=== PATIENT | female | born 1980 | race Two or more races ===

== ENCOUNTER 2024-05-04 09:48 | Emergency (ER) | payer OTHER, SELFPAY ==
--- NOTE | ~2024-05-04 | XR_ITS ---
EXAMINATION: XR CHEST CLINICAL INFORMATION: Cough x4 weeks COMPARISON: None available. TECHNIQUE: 2 views of the chest were obtained. FINDINGS: No significant abnormality is noted involving the heart, lungs, mediastinum, bony thorax or soft tissues. XR/XR chest 2V IMPRESSION: Unremarkable examination. Electronically signed by: Kaden Martinez MD 05/04/2024 12:58 PM EDT
[2024-05-04 09:53] VITALS: BP 154/86; PULSE 97; RESP 16; TEMP 37; O2SAT 100; BMI 32.8
[2024-05-04 10:48] LABS: IDNOW Serial# 08D9AD1C; Strep A Nucleic Acid Negative (Negative)
--- NOTE | 2024-05-04 11:01 | ED_ITS ---
HPI - URI/Sore Throat General Chief Complaint: Upper Respiratory Symptoms Stated Complaint: throat discomfort Time Seen by Provider: 05/04/24 10:22 Source: patient and digital asset coordinator (Gabonese) Mode of arrival: ambulatory Limitations: language barrier (Gabonese speaking) History of Present Illness ED Provider: REGGIE SANTOS PA-C HPI Narrative: 43 year old female with pmhx significant for asthma presents to the ED today for evaluation of cough x4 weeks. Cough is occasionally productive of white sputum, otherwise dry. 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 Believes that the dust particles irritated her respiratory tract. Reports continued cough since. Admits to remote history of asthma however this went away after having a prayer said over her while in [place]. Has not had issues since. Endorses using her daughters nebulizer 5x approximately 2 weeks ago with some improvement. No recent travel or long car rides. No known sick contacts. Denies fever, chills, myalgias, sore throat, chest pain, SOB, wheezing, dyspnea, leg swelling. No hx of CHF, afib, other cardiac hx. No hx DM. Related Data Previous Rx's ?Medication ?Instructions ?Recorded benzonatate 100 mg capsule 100 mg PO BID PRN cough #20 caps 05/04/24 doxycycline hyclate 100 mg tablet 100 mg PO BID 5 days #10 tabs 05/04/24 prednisone 20 mg tablet 40 mg (2 x 20 mg) PO DAILY 5 days 05/04/24 #10 tabs Allergies Allergy/AdvReac Type Severity Reaction Status Date / Time No Known Allergies Allergy Verified 05/04/24 09:55 Review of Systems Review of Systems: Constitutional: No fever, chills, fatigue, night sweats, weight changes ENT/Mouth: No ear pain, hearing loss, nasal congestion, sinus pain, rhinorrhea, sore throat Eyes: No eye pain, swelling, redness, vision changes, discharge Cardio: No chest pain, palpitations, KHAN, orthopnea, peripheral edema Pulm: No SOB, sputum, wheezing, dyspnea, hemoptysis, +cough GI: No nausea, vomiting, hematemesis, abdominal pain, diarrhea, constipation, hematochezia, melena : No irregular bleeding, dysuria, frequency, urgency, hesitancy, hematuria, flank pain, urinary flow changes, urinary incontinence or retention MSK: No back pain, neck pain, joint pain, myalgias Skin: No lesions, rashes Neuro: No weakness, numbness, paresthesias, LOC, dizziness, headache Psych: No anxiety/panic, depression, SI/HI, AH/VH All other systems reviewed and are negative. [facility] Past Medical History Attestation statement: The following information was validated with the patient. Source: old records reviewed and nursing notes reviewed Social History Social History Advance Directives: No Do you have a plan to hurt others: No Plan Physical Exam Vital Signs: Vital Signs: Last Vital Signs Temp 98.6 F 05/04/24 09:53 Pulse 97 05/04/24 09:53 Resp 16 05/04/24 09:53 BP 154/86 H 05/04/24 09:53 Pulse Ox 100 05/04/24 09:53 O2 Del Method Room Air 05/04/24 09:53 BMI result Body Mass Index 32.8 Patient hypertensive to 154/86, vitals otherwise WNL General: Well appearing, in no acute distress. Skin: Warm, dry, intact. No rashes or lesions. Head: Normocephalic, atraumatic. EENT: Hearing is intact b/l. Conjunctiva clear. PERRLA. Moist mucous membranes.? Neck: Supple without LAD Cardiac: Chest wall symmetric. RRR. No MRG. No JVD. Lungs: Normal respiratory effort without accessory muscle use. CTA bilaterally. No rales, rhonchi, or wheezes.? Back: No midline spinous or paraspinal tenderness. No step off deformity. Ext: Upper and lower extremities atraumatic, without tenderness, deformity, swelling or erythema. Full ROM throughout. No calf tenderness b/l. Neuro: AOx3. Normal speech. Ambulating with steady gait. Psych: Appropriate mood and affect. Responds appropriately to questions. Course Course Course Narrative: 1317 -- Patient tested negative for covid/ flu/ rsv. CXR without infiltrate or consolidation to suggest pneumonia. Will treat for bronchitis. Prednisone + zpack + tessalon perles sent to pharmacy for treatment. Patient has remained stable throughout ED visit today. Discussed worrisome signs and symptoms and when to return to the ED. All questions answered at this time. Patient is agreeable with disposition and stable for discharge. Medical Decision Making Medical Decision Making [facility] Narrative: 43 year old female with pmhx significant for asthma presents to the ED today for evaluation of cough x4 weeks. Hypertensive, vitals otherwise wnl. she is nontoxic appearing and in NAD. no respiratory distress. no tripoding or increased effort of breathing. Lungs clear, no rales/ rhonchi/ wheezes. RRR. No JVD or peripheral edema. No calf tenderness b/l. Differential diagnosis includes viral syndrome, strep throat, bronchitis, pneumonia, asthma exacerbation. Unlikely KEITH, arryhthmia. PERC 0. PE unlikely. Plan for viral serology, cxr, and re-evaluation. Differential Diagnosis Differential Diagnoses: The differential diagnosis associated with the presentation includes as above. Admission/Observation not indicated. Lab Data [facility] Lab Attestation statement: I reviewed the patient's lab results. as above. Labs: Lab Results 05/04/24 Range/Units 10:20 Influenza Type A (PCR) NEGATIVE (Negative) Influenza Type B (PCR) NEGATIVE (Negative) RSV RNA Qual (PCR) NEGATIVE (Negative) SARS-CoV-2 RNA (RT-PCR) NEGATIVE (Negative) S. pyogenes GrpA HANNA Negative (Negative) Independent Interpretation I performed an independent interpretation of an: Plain X-Ray Interpretation: Chest x-ray without infiltrate or consolidation, agree with radiologist's interpretation. Radiology Impression Discussion of test interpretation with radiology: I have reviewed the radio logist's reading. Radiologist Impression: EXAMINATION: XR CHEST CLINICAL INFORMATION: Cough x4 weeks COMPARISON: None available. TECHNIQUE: 2 views of the chest were obtained. FINDINGS: No significant abnormality is noted involving the heart, lungs, mediastinum, bony thorax or soft tissues. XR/XR chest 2V IMPRESSION: Unremarkable examination. Electronically signed by: Kaden Martinez MD 05/04/2024 12:58 PM EDT External Record Review External record reviewed: Inpatient record Chronic Conditions Patient?s care impacted by: Other (asthma) Social Determinants Patient?s care significantly limited by Social Determinants of Health including: Other Social Determinant of Health Critical Care Time Critical Care Time Critical Care Time: No Discharge Plan Discharge Clinical Impression: Bronchitis Patient Disposition: Home, Self-Care Instructions: Acute Bronchitis (ED) Additional Instructions: You tested negative for COVID, flu, RSV, strep throat. Your chest x-ray is normal. You will be treated for bronchitis which is inflammation of the airways. Prednisone as a steroid that has been sent to your pharmacy. Take this as directed over the next 4 days starting tomorrow. You were treated with this already in the ED today. Doxycycline is an antibiotic that has been sent to your pharmacy. Take this over the next 5 days as directed. Teskasia Godwines have been sent to your pharmacy for you to take as needed for cough. Please be aware that cough can last anywhere from 4-6 weeks. Follow up with your primary care provider. Return with new or worsening symptoms. In the case of an emergency call 911. Prescriptions: New prednisone 20 mg tablet 40 mg PO DAILY 5 Days Qty: 10 0RF benzonatate 100 mg capsule 100 mg PO BID PRN (Reason: cough) Qty: 20 0RF doxycycline hyclate 100 mg tablet 100 mg PO BID 5 Days Qty: 10 0RF Print Language: Gabonese
[2024-05-04 11:06] LABS: Influenza A PCR NEGATIVE (Negative); Influenza B PCR NEGATIVE (Negative); Resp Syncy Virus RNA Qual PCR NEGATIVE (Negative); SARS COV2 PCR INHOUSE NEGATIVE (Negative)
[2024-05-04 13:19] VITALS: BP 144/88; PULSE 80; RESP 16; TEMP 36.8; O2SAT 99
[2024-05-04 13:39] VITALS: BP 144/88; PULSE 80; RESP 16; TEMP 36.8; O2SAT 99
== END 2024-05-04 13:39 | disposition home or self-care (01) ==
PROVIDERS: Physician Assistant Medical; Emergency Provider Student in an Organized Health Care Education/Training Program
DX: J40 Bronchitis, not specified as acute or chronic (principal); R07.0 Pain in throat; R05.9 Cough, unspecified; Z03.818 Encounter for observation for suspected exposure to other biological agents ruled out
CPT/HCPCS: 0241U; 71046; 87651; 99283; 99284

== ENCOUNTER 2025-04-24 09:10 | Outpatient (REF) | payer MEDICAID, SELFPAY ==
--- OUTSIDE RECORDS SUMMARY | 2025-04-24 09:00 | XMS_ITS | Encounter Summary ---
Author Organization [employer] Address [address] [facility] [address] [place] [address] Care Team Providers Care Environmental Compliance Officer Name Role Phone Leonor Mckee MD Primary Care Provider [phone] Reason for Visit * Reason Comments Well woman exam Encounter Details Date Type Department Care Team (Latest Contact Info) Description 04/24/2025 9:00 AM EDT Procedure Visit [facility] MED & PEDS [address] [place], [place] [phone] Leonor Mckee MD [address] [place] [address] Cervical cancer screening (Primary Dx) Social History [...] Exam Vitals reviewed. Exam conducted with a zig zag spring machine operator present. Constitutional: Appearance: She is obese. HENT: [...] cervix documented in this encounter Care Teams Environmental Compliance Officer Relationship Specialty Start Date End Date Leonor Mckee MD [address] [place] [id number] PCP - General Family Medicine 03/29/25 documented as of this encounter
--- OUTSIDE RECORDS SUMMARY | 2025-04-25 15:09 | XMS_ITS | Encounter Summary ---
Author Organization [employer] Address [address] [place] [address] Care Team Providers Care Talent Development Coordinator Name Role Phone Leonor Mckee MD Primary Care Provider [phone] Encounter Details Date Type Department Care Team [...] on filedocumented in this encounter Care Teams Talent Development Coordinator Relationship Specialty Start Date End Date Leonor Mckee MD [address] [place] [address] PCP - General Family Medicine 03/29/25 documented as of this encounter
--- OUTSIDE RECORDS SUMMARY | 2025-04-25 15:09 | XMS_ITS | Encounter Summary ---
Author Organization [employer] Address [address] [facility] [address]t [place] [address] Care Team Providers Care Cco & President Name Role Phone Leonor Mckee MD Primary Care Provider [phone] Encounter Details Date Type Department Care Team ([facility] st Contact Info) Description 04/18/2025 Results Follow-Up [facility] [address] [place], [place] [phone] Leonor Mckee MD [address] [place], [place] [phone] Cologuard colon cancer screening Social History Tobacco [...] on filedocumented in this encounter Care Teams Cco & President Relationship Specialty Start Date End Date Leonor Mckee MD [address] [place] [address] PCP - General Family Medicine 03/29/25 documented as of this encounter
--- OUTSIDE RECORDS SUMMARY | 2025-04-25 15:09 | XMS_ITS | Encounter Summary ---
Author Organization [employer] Address [address] [place] [address] Care Team Providers Care Supervisor Kennel Name Role Phone Leonor Mckee MD Primary Care Provider [phone] Encounter Details Date Type Department Care Team ([facility] st Contact Info) Description 04/24/2025 Orders Only [facility] [address] [place], [place] [phone] Leonor Mckee MD [address] [place], [place] [phone] Social History Tobacco Use Types Packs/Day Years [...] on file documented as of this encounter Procedures Procedure Name Priority Date/Time Associated Diagnosis Comments T4, FREE Routine 04/24/2025 10:23 AM EDT documented in this encounter Results * T4, Free (04/24/2025 10:23 AM EDT) Free T4 (Free Thyroxine) 0.91 0.71 - 1.85 ng/dL [facility] 04/24/2025 10:2 3 AM EDT 04/24/2025 2:29 PM EDT us Leonor Mckee MD LAB BLOOD ORDERABLES Final Re sult [facility] [address] [place], [place] [phone] documented in this encounter Visit Diagnoses Not on filedocumented in this encounter Care Teams Supervisor Kennel Relationship Specialty Start Date End Date Leonor Mckee MD [address] [place] [phone] PCP - General Family Medicine 03/29/25 documented as of this encounter
--- OUTSIDE RECORDS SUMMARY | 2025-04-25 15:09 | XMS_ITS | Clinical Summary ---
Author Organization [facility] Address [address] [place] [address] Care Team Providers Care Peoplesoft Hr Developer Name Role Phone Amita Koroma PA-C Primary Care Provider [phone] Source Comments PLEASE NOTE, if this patient [...] daily 30 g 1 0 Active prenat.vits,eduardo ,bel-bxdp-ksoao per tabletIndicatio ns:prevent neural tube defect Take [...] HPV 10/21/2024 10/21/2021 Pap Smear 10/21/2024 10/21/2021 [id number] ( season) 2025 Imm-Influenza (#1) 2025 Cervical [...] 02/01/2024 3:00 AM EDT Amita Koroma PA-C [facility] MAMMO Final Result * THIN PREP IMAGE PAP + HPV RNA E6/E7 W/RFLX HPV 16, 18/45 (10/21/2021 1:35 PM EDT) CLINICAL INFORMATION See Note [facility] Comment:Routine exam LMP See Note [facility] Comment:[id number] PREV. PAP See Note [facility] Comment:NONE GIVEN PREV. BX [facility] SOURCE See Note [facility] Comment:Cervix STATEMENT OF ADEQUACY See Note [facility] Comment: Satisfactory for evaluation. Endocervical/transformation zone component absent. INTERPRETATION/RESU LT See Note [facility] Comment:Negative for intraep ithelial lesion or malignancy. INFECTION See Note [facility] Comment: Shift in vaginal bossman suggestive of bacterial vaginosis. COMMENT See Note [facility] Comment: This Pap test has been evaluated with computer assisted technology. WOOL SAMPLER See Note [facility] Comment: SL, CT(ASCP) CT screening location: [place] [address] [facility] HPV MRNA E6/E7 Not Detected Not Detected [facility] Comment: Methodology: Conductor Orchestra-Mediated Amplification This assay detects E6/E7 viral messenger RNA (mRNA) from 14 high-risk HPV types (16,18,31,33,35,39,45,51,52,56,58,59,66,68). The analytical performance characteristics of this assay have been determined by [employer]. The modifications have not been cleared or approved by the FDA. This assay has been validated pursuant to the CLIA regulations and is used for clinical purposes. For additional information, please refer to http://education.Efizity/faq/NMP839c5 (This link if provided for information/ educational purposes only.) [place] Cervix uteri structure / Unknown 10/21/2021 1:35 PM EDT 10/22/2021 5:34 AM EDT Narrative [facility] - 10/23/2021 6:36 PM EDT EXPLANATORY [...] AND CYTOLOGY AMBULATORY Final Result [facility] [address] [address], [facility] [address] [address] * COMPRE METAB PANEL (CMP) (09/13/2019 4:21 PM EST) GLUCOSE 91 70 - 100 mg/dL [facility] Comment:Reference range appl icable to fasting specimens only BUN 12 5 - 25 mg/dL [facility] CREAT 0.62 0.5 - 1.1 mg/dL [facility] GLOMERULAR FILTRATION RATE > 60 [facility] Comment: If patient is -Haitian, multiply result by 1.21 Chronic Kidney Disease: < 60 ml/min/1.73 square meters Kidney Failure: < 15 ml/min/1.73 square meters SODIUM 135 135 - 145 mEq/L [facility] POTASSIUM 3.9 3.5 - 5.5 mmol/L [facility] CHLORIDE 101 96 - 110 mmol/L [facility] CO2 28 21 - 32 mmol/L [facility] ANION GAP 6 3 - 11 [facility] CALCIUM 9.5 8.5 - 10.5 mg/dL [facility] TOTAL PROTEIN 7.6 6.0 - 8.0 G/dL [facility] ALBUMIN 4.0 3.2 - 5.0 G/dL [facility] BILI, TOTAL 0.6 0.0 - 1.4 mg/dL [facility] SGOT 11 10 - 42 U/L [facility] SGPT 14 10 - 60 U/L [facility] ALK PHOS 70 42 - 121 U/L [facility] Blood specimen (specimen) Blood / Unknown 09/13/2019 4:21 PM EST 09/13/2019 4:29 PM EST Narrative [facility] - 09/13/2019 6:29 PM EST [employer], a member of [facility] [address] [place] [address] Physics Technical Officer - Hyacinth Centeno MD PT ID [id number] ORD# [id number] Yakelin Newton PA-C LAB - BLOOD DRAW Final Result [facility] [address] [place] [address], from Last 3 Months or Most Recently Relevant to Health Maintenance Insurance [employer] [place] Care Teams Peoplesoft Hr Developer Relationship Specialty Start Date End Date Amita Koroma PA-C [address] [place] [address] PCP - General FAMILY MEDICINEZACHARIAH 03/20/22
--- OUTSIDE RECORDS SUMMARY | 2025-04-25 15:09 | XMS_ITS | Clinical Summary ---
Author Organization [facility] Address [address] [place] [address] Phone Care Team Providers Care Legal Project Manager Name Role Phone Physician, No Pcp Primary [...] Procedure Name Priority Date/Time Associated Diagnosis Comments [facility] SCREENING DIGITAL Routine 01/26/2024 3:38 PM EDT Encounter for screening mammogram for malignant neoplasm of breast from Last 3 Months or Most Recently Relevant to Health Maintenance Results * [facility] SCREENING DIGITAL (01/26/2024 3:38 PM EDT) Anatomical Region Laterality Modality Mammography 01/26/2024 9:48 AM EDT Narrative 01/26/2024 3:[address] [facility] Diagnostic Imaging Department [address] [place] [address] Patient: POLINA CASANOVA /Age/Sex: 1980 - 43 - F Unit#: [id number] Location/Status: SPDIMAM/REG CLI Mnemonic/Ordering Site: [facility] Ordering Physician: MATTIE ZELAYA PA-C [facility] Screening Digital - 01/26/24 - 1011 Report Status:Signed EXAM: [facility] Screening Digital EXAM DATE AND TIME: 01/26/2024 10:12 AM HISTORY: Screening. COMPARISON: 11/02/22, 10/30/21 TECHNIQUE: Bilateral digital breast tomosynthesis was performed in the CC and MLO projections. Computer aided detection with EyesBot 3D 3.1 was employed. TISSUE DENSITY: c. [...] Procedure Note Nurys Pinto MD - 05/17/2024 [facility] Diagnostic Imaging Department [address] [place] [address] Patient: POLINA CASANOVA./Age/Sex: 1980 - 43- F Unit#: [id number] Location/Status: SPDIMAM/REG CLI Mnemonic/Ordering Site: [facility] Ordering Physician: MATTIE ZELAYA PA-C [facility] Screening Digital - 01/26/24 - 1011 Report Status:Signed EXAM: [facility] Screening Digital EXAM DATE AND TIME: 01/26/2024 10:12 AM HISTORY: Screening. COMPARISON: 11/02/22, 10/30/21 TECHNIQUE: Bilateral digital breast tomosynthesis was performed in the CCand MLO projections. Computer aided detection with EyesBot 3D 3.1was employed. TISSUE DENSITY: c. The [...] Most Recently Relevant to Health Maintenance Insurance [facility] Care Teams Legal Project Manager Relationship Specialty Start Date End Date Physician, No Pcp PCP - General 08/03/24
--- OUTSIDE RECORDS SUMMARY | 2025-04-25 15:09 | XMS_ITS | Clinical Summary ---
Author Organization [facility] Address [address] [facility] 7 [place] [address] Care Team Providers Care Financial Internship Name Role Phone Leonor Mckee MD Primary Care Provider [phone] Allergies No known active allergies Medications multivitamin [...] Description 04/24/2025 9:00 AM EDT Procedure Visit [facility] [address] [place] [address] Leonor Mckee MD Cervical cancer screening (Primary Dx) 04/24/2025 Orders Only [facility] [address] [place] [address] Leonor Mckee MD 04/24/2025 Travel 04/18/2025 Results Follow-Up [facility] [address] [place] [address] Leonor Mckee MD Cologuard colon cancer screening 04/06/2025 Telephone [employer] [address] [place] [address] Leonor Mckee MD 04/04/2025 Population Health Risk Score [facility] (C3) Department [address] [phone] Provider, Population Health Generic 04/03/2025 Travel 03/29/2025 10:45 AM EDT Office Visit [facility] [address] [place] [address] Leonor Mckee MD Infertility counseling (Primary Dx); Screening for colon cancer; Class 1 obesity with serious comorbidity and body mass index (BMI) of 34.0 to 34.9 in adult, unspecified obesity type; Encounter for health-related screening; Encounter for immunization; Increased urinary frequency 03/29/2025 Travel 03/27/2025 Telephone [facility] [address] [place] [address] Leonor Mckee MD CHART PREP 03/22/2025 Patient Outreach [facility] [address] [place] [address] Rigo Luevano MD Pre-visit Planning (SDOH screening [...] Screening 1979 FIT 1979 HIV Screening 1980 04/24/2025 Sigmoidoscopy 1979 Disability Screening 1979 Alcohol/Substance Use Screening 1991 Family Planning (PISQ) 10/01/1994 HPV Vaccines (1 - 3-dose series) 10/01/1994 Hepatitis C Screening 10/01/1997 04/24/2025 Hepatitis B Vaccines (1 of 3 - 19+ 3-dose series) 10/01/1998 HPV/Cotest 10/01/2009 Cervical Cancer Screening 10/21/2024 Pap Smear 10/21/2024 10/21/2021 COVID-19 Vaccine ( - 2023-2 5 season) 2025 Mammogram 08/03/2025 08/03/2024, 08/03/2024 Influenza Vaccine (#1) 2026 Postp oned from 04/02/2025 (Patient Refused) SDOH Screening 03/22/2026 03/22/2025 FOBT 04/11/2026 04/11/2025 Tobacco Screening 04/24/2026 04/24/2025 Colorectal Cancer Screening 04/11/2028 FIT DNA/Cologuard 04/11/2028 04/11/2025 Zoster Vaccines (1 of 2) 10/01/2029 Lipid Panel 04/24/2030 04/24/2025 DTaP/Tdap/Td Vaccines (2 - T d or [...] Procedure Name Priority Date/Time Associated Diagnosis Comments URINALYSIS, COMPLETE, WITH REFLEX TO CULTURE Routine 04/24/2025 10:30 AM EDT Increased urinary frequency HEPATITIS C AB W/REFL TO HCV RNA, QN, PCR Routine 04/24/2025 10:25 AM EDT Encounter for health-related screening HIV 1/2 ANTIGEN/ANTIBODY, FOURTH GENERATION W/RFL Routine 04/24/2025 10:25 AM EDT Encounter for health-related screening T4, FREE Routine 04/24/2025 10:23 AM EDT MEASLES, MUMPS, AND RUBELLA (MMR) AB (IGG) PANEL, IMMUNE STATUS Routine 04/24/2025 10:23 AM EDT Infertility counseling TSH W/REFLEX TO FT4 Routine 04/24/2025 1 0:23 AM EDT Class 1 obesity with serious comorbidity and body mass index (BMI) of 34.0 to 34.9 in adult, unspecified obesity type VITAMIN D,25-OH,TOTAL,IA Routine 04/24/2025 10:23 AM EDT Class 1 obesity with serious comorbidity and body mass index (BMI) of 34.0 to 34.9 in adult, unspecified obesity type LIPID PANEL, STANDARD Routine 04/24/2025 10:23 AM EDT Class 1 obesity with serious comorbidity and body mass index (BMI) of 34.0 to 34.9 in adult, unspecified obesity type COMPREHENSIVE METABOLIC PANEL Routine 04/24/2025 10:23 AM EDT Class 1 obesity with serious comorbidity and body mass index (BMI) of 34.0 to 34.9 in adult, unspecified obesity type CBC WITH AUTO DIFFERENTIAL Routine 04/24/2025 10:23 AM EDT Class 1 obesity with serious comorbidity and body mass index (BMI) of 34.0 to 34.9 in adult, unspecified obesity type VARICELLA ZOSTER ANTIBODY, IGG Routine 04/24/2025 10:19 AM EDT Infertility counseling LAB COLOGUARD COLON CANCER SCREEN Routine 04/11/2025 8:50 AM EDT Screening for colon cancer PAP SMEAR Routine 10/21/2021 from Last 3 Months or Most Recently Relevant to Health Maintenance Results * Urinalysis, Complete, with Reflex to Culture (04/24/2025 10:30 AM EDT) Color Urine Yellow [facility] Appearance Urine Clear [facility] PH 5.5 5.0 - 9.0 [facility] Glucose Urine UA Negative Negative mg/dL [facility] Urine Blood Negative Negative [facility] Specific [place] - Urine 1.025 1.005 - 1.025 [facility] Urine Protein Negative Neg-Trace mg/dL [facility] Urine Ketones Negative Negative mg/dL [facility] Nitrite Urine Negative Negative [facility] Leukocyte Esterase Urine Negative Negative [facility] RBC Urine 0-2 0 - 2 /HPF [facility] Urine WBC 0-5 0 - 5 /HPF [facility] Urine Squamous Epithelial Cell 0-2 0 - 2 /HPF [facility] Urine Bacteria None Seen None Seen [facility] Hyaline Casts, Urine 0-2 0 - 2 /LPF [facility] Urine 04/24/2025 10:3 0 AM EDT 04/24/2025 2:17 PM EDT Narrative [facility] - 04/24/2025 2:30 PM EDT [id number], Clean Catch Leonor Mckee MD LAB URINE ORDERABLES Final Re sult Performing Organization Address [facility] Co de Phone Number [facility] [address] [place] [phone] * Hepatitis C Antibody with Reflex to HCV, RNA, Quantitative, Real-Time PCR (04/24/2025 10:25 AM EDT) Hepatitis C Antibody Nonreactive Nonreactive [facility] Comment:Antibodies to HCV no t detected; does not exclude early acuteHCV infection. Blood Venous blood specimen / Unknown 04/24/2025 10:25 AM EDT 04/24/2025 2:29 PM EDT Leonor Mckee MD LAB BLOOD ORDERABLES Final Re sult Performing Organization Address City/[facility] Co de Phone Number [facility] [address] [place] [address] [phone] * HIV-1/2 Antigen and Antibodies, Fourth Generation, with Reflexes (04/24/2025 10:25 AM EDT) HIV AB/AG Nonreactive Nonreactive [facility] Comment:HIV-1 p24 Ag and/or HIV-1/HIV-2 Ab not detected.A test result that is nonreactive does not exclude thepossibility of exposure to or infection with HIV-1 and/orHIV-2. Nonreactive results in this assay for individualswith prior exposure to HIV-1 and/or HIV-2 may be due toantigen and antibody levels that are below the limit ofdetection of this assay.The [employer] HIV Ag/Ab Combo assay result andsupplemental assay results should be interpreted inconjunction with the patient's clinical presentation,history and other laboratory results. If the results areinconsistent with clinical evidence, additional testing issuggested to confirm the result. Blood Venous blood specimen / Unknown 04/24/2025 10:25 AM EDT 04/24/2025 2:29 PM EDT us Leonor Mckee MD LAB BLOOD ORDERABLES Final Re sult Performing Organization Address [facility] Co de Phone Number [facility] [address] [place] [phone] [phone] * Vitamin D, 25-Hydroxy, Total, Immunoassay (04/24/2025 10:23 AM EDT) Vitamin D 25-OH Total 36.6 >30 ng/mL [facility] Comment: Health Based Reference Values*< 20 ng/mL Ozfsonvkg50-93 ng/mL Insufficient> 30 ng/mL Sufficient*Desirae DOMINGUEZ. N Engl J Med. 2007;357:266-280There is no well-established upper level of normal vitamin Dlevels. Some laboratories use 50 ng/mL as an upper limit ofnormal. However, toxicity is patient-dependent and may occurat any level. Careful correlation with the patient'spresentation is necessary and, if there is concern forvitamin D toxicity, treatment should be consideredirrespective of the serum level.Care must be taken in interpreting Vitamin D results fromdifferent laboratories and methodologies. Published datademonstrated that results from patients undergoinghemodialysis may show a negative bias when tested withvarious automated 25-OH vitamin D assays when compared toLC-MS/MS.When testing samples from patients whose predominant form ofVitamin D is Vitamin D2, such as patients receiving VitaminD2 supplementation, results that are subtherapeutic shouldbe confirmed with another method such as LC-MS/MS. Blood Venous blood specimen / Unknown 04/24/2025 10:23 AM EDT 04/24/2025 2:29 PM EDT Leonor Mckee MD LAB BLOOD ORDERABLES Final Re sult Performing Organization Address [facility] Co de Phone Number [facility] [address] [place] [phone] * (ABNORMAL) TSH W/Reflex to FT4 (04/24/2025 10:23 AM EDT) TSH reflex Free T4 5.02(H) 0.32 - 4.0 uIU/mL [facility] Blood Venous blood specimen / Unknown 04/24/2025 10:23 AM EDT 04/24/2025 2:29 PM EDT Leonor Mckee MD LAB BLOOD ORDERABLES Final Re sult Performing Organization Address [facility] Co de Phone Number [facility] [address] [place] [phone] * Measles, Mumps, and Rubella (MMR) Antibodies??(IgG) Panel, Immune Status (04/24/2025 10:23 AM EDT) Mumps Virus IgG Antibody >300.00 AU/mL [facility] Comment:AU/mL Interpretation ------- <9.00 Not consistent with immunity9.00-10.99 Equivocal>10.99 Consistent with immunityThe presence of mumps IgG antibody suggests immunizationor past or current infection with mumps virus. Rubella IgG Antibody 12.90 Index [facility] Comment:Index Interpretation ----- <0.90 Not consistent with immunity 0.90-0.99 Equivocal > or = 1.00 Consistent with immunityThe presence of rubella IgG antibody suggestsimmunization or past or current infection withrubella virus.THIS TEST WAS PERFORMED AT:[facility] [place] [phone] WISE MD Rubeola IgG (Measles) >300.00 AU/mL [facility] Comment:AU/mL Interpretation ----- <13.50 Not consistent with dudmpehq02.50-16.49 Equivocal>16.49 Consistent with immunityThe presence of measles IgG suggests immunization orpast or current infection with measles virus.For additional information, please refer tohttp://education.Erecruit/faq/SSU532(This link is being provided for informational/educational purposes only.) Blood 04/24/2025 10:2 3 AM EDT 04/24/2025 2:29 PM EDT us Leonor Mckee MD LAB BLOOD ORDERABLES Final Re sult [facility] [address] [place] [address] [phone] * (ABNORMAL) CBC auto differential (04/24/2025 10:23 AM EDT) White Blood Count 8.0 4.8 - 10.8 X10*3/uL [facility] Red Blood Count 4.43 4.20 - 5.50 X10*6/uL [facility] Hemoglobin 13.3 12.0 - 16.0 g/dl [facility] Hematocrit 40.8 37.0 - 47.0 % [facility] Mean Corpuscular Volume 92.1 80.0 - 98.0 fL [facility] Mean Corpuscular Hemoglobin 30.0 27.0 - 33.0 pg [facility] Mean Corpuscular HGB Conc 32.6 31.0 - 35.0 g/dl [facility] Red Cell Distribution Width 12.9 11.0 - 16.0 % [facility] Platelet Count 252 160 - 400 X10*3/uL [facility] Mean Platelet Volume 11.6 9.4 - 12.3 fL [facility] Neutrophils Percent Auto 62.3 45 - 73 % [facility] Imm Gran Pct Auto 0.5(H) 0.0 - 0.4 % [facility] Lymphocytes Percent Auto 26.1 20 - 40 % [facility] Monocytes Percent Auto 8.5 2 - 11 % [facility] Eosinophils Percent Auto 2.1 0 - 4 % [facility] Basophils Percent Auto 0.5 0 - 2 % [facility] NRBC Pct Auto 0.0 0.0 - 0.2 /100WBC [facility] Neutrophils Absolute Auto 5.0 2.0 - 8.3 x10*3/uL [facility] Imm Gran Abs Auto 0.04(H) 0.00 - 0.03 X10*3/uL [facility] Lymphocytes Absolute Auto 2.1 1.2 - 4.9 X10*3/uL [facility] Monocytes Absolute Auto 0.7 0.1 - 1.2 X10*3/uL [facility] Eosinophils Absolute Auto 0.2 0.0 - 0.4 X10*3/uL [facility] Basophils Absolute Auto 0.0 0.0 - 0.2 X10*3/uL [facility] NRBC Abs Auto 0.000 0.0 - 0.012 X10*3/uL [facility] Blood Venous blood specimen / Unknown 04/24/2025 10:23 AM EDT 04/24/2025 2:29 PM EDT us Leonor Mckee MD LAB BLOOD ORDERABLES Final Re sult Performing Organization Address [facility]/ZIP Co de Phone Number [facility] [address] [place] [phone] * T4, Free (04/24/2025 10:23 AM EDT) Free T4 (Free Thyroxine) 0.91 0.71 - 1.85 ng/dL [facility] 04/24/2025 10:2 3 AM EDT 04/24/2025 2:29 PM EDT us Leonor Mckee MD LAB BLOOD ORDERABLES Final Re sult Performing Organization Address [facility] de Phone Number [facility] [address] [place] [phone] * (ABNORMAL) Lipid Panel, Standard (04/24/2025 10:23 AM EDT) Triglycerides 210(H) <150 mg/dL [facility] Comment:Desirable Triglyceri de: less than 150 mg/dLBorderline High Triglyceride 150-199 mg/dLHigh Triglyceride: 200-499 mg/dLVery High Triglyceride: greater than or equal to 5OO mg/dL Cholesterol 194 <200 mg/dL [facility] Comment:Desirable Cholestero l: less than 200 mg/dLBorderline High Cholesterol: 200-239 mg/dLHigh Cholesterol: greater than 239 mg/dL LDL Cholesterol Calculated 122(H) <100 mg/dL [facility] Comment:Desirable LDL: less than 100 mg/dLNear Optimal/Above Optimal LDL: 110- 129 mg/dLBorderline High LDL: 130-159 mg/dLHigh LDL: 160-189 mg/dLVery High LDL: greater than or equal to 190 mg/dL HDL Cholesterol 30(L) >40 mg/dL [facility] Comment:Desirable HDL: great er than 40 mg/dL Note: This HDL assay may give artificially low results in patients with liver disease. Blood Venous blood specimen / Unknown 04/24/2025 10:23 AM EDT 04/24/2025 2:29 PM EDT us Leonor Mckee MD LAB BLOOD ORDERABLES Final Re sult [facility] [address] [place], [place] [phone] * (ABNORMAL) Comprehensive Metabolic Panel (04/24/2025 10:23 AM EDT) Sodium 139 135 - 145 mmol/L [facility] Potassium 3.7 3.3 - 5.1 mmol/L [facility] Chloride 107 96 - 108 mmol/L [facility] Carbon Dioxide 28 22 - 29 mmol/L [facility] Anion Gap 8(L) 12 - 20 [facility] Urea Nitrogen (BUN) 12 9 - 16 mg/dL [facility] Creatinine, Serum 0.61 0.5 - 1.4 mg/dL [facility] Estimated Glomerular Filt Rate >60 [facility] Comment:Chronic Kidney Disea se: Estimated GFR < 60 mL/min/1.71g6Zoptyx Kidney Disease: Estimated GFR < 15 mL/min/1.73m2 Glucose 89 60 - 115 mg/dL [facility] Calcium 8.9 8.4 - 10.2 mg/dL [facility] Bilirubin, Total 0.5 0.0 - 1.0 mg/dL [facility] Aspartate Amino Transferase 22 5 - 31 U/L [facility] Alanine Aminotransferase 19 0 - 31 U/L [facility] Total Protein 7.4 6.5 - 8.0 g/dL [facility] Albumin Level 4.2 3.5 - 5.0 g/dL [facility] Alkaline Phosphatase 65 39 - 117 U/L [facility] Blood Venous blood specimen / Unknown 04/24/2025 10:23 AM EDT 04/24/2025 2:29 PM EDT us Leonor Mckee MD LAB BLOOD ORDERABLES Final Re sult Performing Organization Address [facility] Co de Phone Number [facility] [address] [place] [phone] * Varicella Zoster Antibody, IgG (04/24/2025 10:19 AM EDT) Varicella IgG Antibody 3.61 S/CO [facility] Comment:Signal to Cut-off S/ CO Interpretation --------- <1.00 Negative - Antibody not detected > or = 1.00 Positive - Antibody detected A positive result indicates that the patient has antibody to VZV but does not differentiate between an active or past infection. The clinical diagnosis must be interpreted in conjunction with the clinical signs and symptoms of the patient. This assay reliably measures immunity due to previous infection but may not be sensitive enough to detect antibodies induced by vaccination. Thus, a negative result in a vaccinated individual does not necessarily indicate susceptibility to VZV infection. A more sensitive test for vaccination-induced immunity is Varicella Zoster Virus Antibody Immunity Screen, ACIF.THIS TEST WAS PERFORMED AT:[facility] [address] [phone] WISE MD Blood Venous blood specimen / Unknown 04/24/2025 10:19 AM EDT 04/24/2025 2:29 PM EDT Leonor Mckee MD LAB BLOOD ORDERABLES Final Re sult Performing Organization Address [facility] Co de Phone Number [facility] [address] [place] [phone] * Cologuard?? colon cancer screening (04/11/2025 8:50 AM EDT) Cologuard Result Negative Negative 04/17/20 8:30 PM EDT [facility] (CLIA #:[id number]) Comment: The Cologuard (TM) test was performed [...] screened with both Cologuard and colonoscopy. (Amarjit Bautista et al, N Engl J Med 2014;370(14):1286- 1297) The normal value (reference range) for this assay is negative. COLOGUARD RE-SCREENING RECOMMENDATION: Periodic colorectal cancer screening is an important part of preventive healthcare for asymptomatic individuals at average risk for colorectal cancer. Following a negative Cologuard result, the [place] [employer] and U.S. Multi-Society Task Force screening guidelines recommend a Cologuard re-screening interval of 3 years. References: [place] [employer] Guideline for Colorectal Cancer Screening: https://www.cancer.org/cancer/zmxcx-okfixe-vbddcz/wimpwdetx-qpofbvhlk-eszglgm/ac s-rec ommendations.html.; Fly DK, Malvin CORMIER, Paulina FraserK, Colorectal Cancer Screening: Recommendations for Physicians and Patients from the U.S. Multi-Society Task Force on Colorectal Cancer Screening , Am J Gastroenterology 2017; 112:1739-7112. TEST DESCRIPTION: Composite algorithmic analysis of stool [...] (Amarjit Hughes al, N Engl J Med 2014;370(14):4864-6314.) Cologuard may produce a false negative or false positive result (no colorectal cancer or precancerous polyp present at colonoscopy follow up). A negative Cologuard test result does not guarantee the absence of CRC or advanced adenoma (pre-cancer). The current Cologuard screening interval is every 3 years. ([place] [employer] and U.S. Multi-Society Task Force). Cologuard performance data in a 10,000 patient pivotal study using colonoscopy as the reference method can be accessed at the following location: www.Collisionable.sfilatino/results. Additional description of the Cologuard test process, warnings and precautions can be found at www.cologuard.com. Stool specimen (specimen) 04/11/2025 8:50 AM EDT 04/13/2025 9:11 AM EDT Leonor Mckee MD LAB MOLECULAR DIAGNOSTICS ORD ERABLES Final Result [facility] (CLIA #:[id number]) [address] [place] [address], * Pap Smear (10/21/2021) Pap Smear 1. NILM 1. NILM Comment:HPV RNA E6/E7 NEGATI VE Swab 10/21/2021 Historical Provider LAB CYTOLOGY ORDERABLES F inal Result from Last 3 Months or Most Recently Relevant to [place] [address] [facility] C3 Care Teams Financial Internship Relationship Specialty Start Date End Date Leonor Mckee MD [address] [place] [address] PCP - General Family Medicine 03/29/25
== END 2025-04-24 09:11 | disposition home or self-care (01) ==
LOC: HO.LNP 09:10
PROVIDERS: Visit Provider Family Medicine
DX: Z12.4 Encounter for screening for malignant neoplasm of cervix (principal); Z11.51 Encounter for screening for human papillomavirus (HPV)
CPT/HCPCS: 87626; 88175

== ENCOUNTER 2025-04-24 10:21 | Outpatient (REF) | payer MEDICAID, SELFPAY ==
--- OUTSIDE RECORDS SUMMARY | 2025-04-24 09:00 | XMS_ITS | Encounter Summary ---
Author Organization [employer] Address [address] [facility] [address] [place] [address] Care Team Providers Care Guide Plant Name Role Phone Leonor Mckee MD Primary Care Provider [phone] Reason for Visit * Reason Comments Well woman exam Encounter Details Date Type Department Care Team (Latest Contact Info) Description 04/24/2025 9:00 AM EDT Procedure Visit [facility] MED & PEDS [address] [place], [place] [phone] Leonor Mckee MD [address] [place] [address] Cervical cancer screening (Primary Dx) Social History Tobacco Use Types Packs/Day Years Used Date Smoking Tobacco: Never Passive Smoke Exposure: Never Smokeless Tobacco: Never Alcohol Use Standard Drinks/Week Comments Never 0 (1 standard drink = 0.6 oz pur e alcohol) Housing Stability Answer Date Recorded What is your housing situation today? I have gloria sing 03/22/[address] you li ve. Do you have problems with any of the following? None of the above 03/22/2025 Food Insecurity Answer Date Recorded Within the past 12 months, y ou worried that your food would run out before you got money to buy more: Never True 03/22/2025 Within the past 12 months,th e food you bought just didn't last and you didn't have enough money to get more: Never True Transportation Answer Date Recorded In the past 12 months, has l ack of transportation kept you from medical appts, meetings, work or from getting things needed for daily living? No 03/22/2025 Utilities Answer Date Recorded In the past 12 months, has t he electric, gas, oil or water company threatened to shut off services in your home? No 03/22/2025 Internet Access Answer Date Recorded Internet Access Q1 Yes 03/22/2025 Internet Access Q2 Not on file 03/22/2025 Comments Unknown Sex and Gender Information Value Date Recorded Sex Assigned at Female 02/21/2025 4:33 PM EDT Legal Sex Female 4:32 PM EDT Gender Identity Female 03/28/2025 4:24 PM EDT Sexual Orientation Don't know 03/28/2025 4: 24 PM EDT documented as of this encounter Last Filed Vital Signs Vital Sign Reading Time Taken Comments Blood Pressure 146/84 04/24/2025 8:50 AM EDT Pulse 78 04/24/2025 8:50 AM EDT Temperature 36.7 C (98.1 F) 04/24/2025 8:50 AM EDT Respiratory Rate 20 04/24/2025 8:50 AM EDT Oxygen Saturation 98% 04/24/2025 8:50 AM EDT Inhaled Oxygen Concentration - - Weight 83.2 kg (183 lb 6.4 oz) 04/24/2025 8:50 A M EDT Height 155 cm (5' 1.02 ) 04/24/2025 8:50 AM EDT Body Mass Index 34.63 04/24/2025 8:50 AM EDT documented in this encounter Progress Notes * Leonor Mckee MD - 04/24/2025 9:00 AM EDT Subjective Patient ID: Polina Koch is a 44 y.o. female who presents for Well woman exam. 44 y.o. female here for annual well woman preventive exam. LMP: Patient's last menstrual period was 03/09/2025 (exact date). Sexual activity: Social History Substance and Sexual Activity Sexual activity: Yes intention: BC method: Smoking hx: Tobacco Use: Low Risk (04/24/2025) Tobacco Smoking Tobacco Use: Never Smokeless Tobacco Use: Never Passive Exposure: Never Alcohol use hx: Social History Substance and Sexual Activity Alcohol use: Never OBHx: The patient has never been . IPV: Denies IPV Reviewed family hx Review of patient's family history indicates: Problem: Alzheimer's disease Relation: Mother Name: Age of Onset: (Not Specified) Problem: Hypertension Relation: Mother Name: Age of Onset: (Not Specified) Problem: Constipation Relation: Mother Name: Age of Onset: (Not Specified) Problem: Alzheimer's disease Relation: Father Name: Age of Onset: (Not Specified) Problem: Thyroid disease Relation: Sister Name: Age of Onset: (Not Specified) Health Maintenance: No results found for: HMPAP , HMMAMMO , HMCOLON Review of Systems Constitutional: Negative for appetite change, fatigue and fever. HENT: Negative for congestion, postnasal drip and rhinorrhea. Eyes: Negative for discharge and redness. Respiratory: Negative for apnea, cough, chest tightness and shortness of breath. Cardiovascular: Negative for chest pain. Gastrointestinal: Negative for abdominal pain. Endocrine: Negative for polyphagia. Genitourinary: Negative for difficulty urinating, dysuria and urgency. Musculoskeletal: Negative for arthralgias. Neurological: Negative for dizziness, light-headedness, numbness and headaches. Hematological: Negative for adenopathy. Does not bruise/bleed easily. Objective Visit Vitals BP (!) 146/84 Pulse 78 Temp 98.1 ??F (36.7 ??C) (Oral) Resp 20 Ht 5' 1.02 (1.55 m) Wt 183 lb 6.4 oz (83.2 kg) LMP 03/09/2025 (Exact Date) SpO2 98% BMI 34.63 kg/m?? Smoking Status Never BSA 1.89 m?? Physical Exam Vitals reviewed. Exam conducted with a channel executive present. Constitutional: Appearance: She is obese. HENT: Head: Normocephalic and atraumatic. Pulmonary: Effort: Pulmonary effort is normal. Chest: Chest wall: No deformity, tenderness or crepitus. Breasts: Breasts are symmetrical. Right: Normal. No inverted nipple, mass, nipple discharge, skin change or tenderness. Left: Normal. No inverted nipple, mass, nipple discharge, skin change or tenderness. Genitourinary: Urethra: No prolapse. Vagina: Normal. Cervix: Normal. Rectum: Normal. Musculoskeletal: Cervical back: Normal range of motion. Lymphadenopathy: Upper Body: Right upper body: No supraclavicular, axillary or pectoral adenopathy. Left upper body: No supraclavicular, axillary or pectoral adenopathy. Psychiatric: Mood and Affect: Mood normal. Assessment/Plan Problem List Items Addressed This Visit Cervical cancer screening - Primary 44 y.o. here for cervical cancer screening. Will continue monitoring following ASCCP guidelines. Relevant Orders Pap Smear HPV High Risk with Reflex to Subtypes documented in this encounter Miscellaneous Notes * Assessment & Plan Note - Leonor Mckee MD - 04/24/2025 9:20 AM EDT Associated Problem(s): Cervical cancer screening 44 y.o. here for cervical cancer screening. Will continue monitoring following ASCCP guidelines. documented in this encounter Plan of Treatment Scheduled Orders Name Type Priority Associated Diagnoses Orde r Schedule Pap Smear Pathology and Cytology Routine Cervical cancer screening Ordered: 04/24/2025 HPV High Risk with Reflex to Subtypes Lab Routine Cervical cancer screening Ordered: 04/24/2025 documented as of this encounter Visit Diagnoses Diagnosis Cervical cancer screening- Primary Screening for malignant neoplasm of the cervix documented in this encounter Care Teams Guide Plant Relationship Specialty Start Date End Date Leonor Mckee MD [address] [place] [id number] PCP - General Family Medicine 03/29/25 documented as of this encounter
--- OUTSIDE RECORDS SUMMARY | 2025-04-24 12:36 | XMS_ITS | Clinical Summary ---
Author Organization [facility] Address [address] [place] [address] Phone Care Team Providers Care Aquatics Specialist Name Role Phone Physician, No Pcp Primary Care Provider Unavaila ble Social History Tobacco Use Types Packs/Day Years Used Date Smoking Tobacco: Never Assessed Comments Unknown Sex and Gender Information Value Date Recorded Sex Assigned at Female 08/03/2024 9:57 AM EST Legal Sex Female 8:25 AM EST Gender Identity Female 08/03/2024 9:57 AM EST Sexual Orientation Straight 08/03/2024 9: 57 AM EST Plan of Treatment Health Maintenance Due Date Last Done Comments DTaP,Tdap,and Td Vaccines (1 - Tdap) 10/01/1998 Hepatitis B Vaccines (1 of 3 - 19+ 3-dose series) 10/01/1998 Cervical Cancer Screening: P ap Smear 10/01/2000 Colorectal Cancer Screening: Colonoscopy 07/05/2022 HIV Screening 07/05/2022 Hepatitis C Screening 07/05/2022 Social Influencers of Health Screening 07/05/2022 Depression Screening 08/02/2024 COVID-19 Vaccine ( - 2023-2 5 season) 2025 Influenza Vaccine (#1) 2025 Breast Cancer Screening 01/25/2026 01/26/20 24, 11/04/2022, 10/30/2021 RSV Immunization Adult Patients (1 - 1-dose 75+ series) 10/01/2054 HIB Vaccines Aged Out No longer eligi ble based on patient's age to complete this topic HPV Vaccines Aged Out No longer eligi ble based on patient's age to complete this topic Hepatitis A Vaccines Aged Out No long er eligible based on patient's age to complete this topic IPV Vaccines Aged Out No longer eligi ble based on patient's age to complete this topic MMR Vaccines Aged Out No longer eligi ble based on patient's age to complete this topic Meningococcal ACWY Vaccine Aged Out N o longer eligible based on patient's age to complete this topic Meningococcal B Vaccine Aged Out No l onger eligible based on patient's age to complete this topic Pneumococcal Vaccine: Pediatrics (0 to 5 Years) and At-Risk Patients (6 to 49 Years) Aged Out No longer eligible b ased on patient's age to complete this topic RSV Immunization Patients Under 20 months Aged Out No longer eligible b ased on patient's age to complete this topic Varicella Vaccines Aged Out No longer eligible based on patient's age to complete this topic Procedures Procedure Name Priority Date/Time Associated Diagnosis Comments [facility] SCREENING DIGITAL Routine 01/26/2024 3:38 PM EDT Encounter for screening mammogram for malignant neoplasm of breast from Last 3 Months or Most Recently Relevant to Health Maintenance Results * [facility] SCREENING DIGITAL (01/26/2024 3:38 PM EDT) Anatomical Region Laterality Modality Mammography 01/26/2024 9:48 AM EDT Narrative 01/26/2024 3:38 PM EDT [facility] Diagnostic Imaging Department [address] [place] [address] Patient: POLINA CASANOVA /Age/Sex: 1980 - 43 - F Unit#: [id number] Location/Status: SPDIMAM/REG CLI Mnemonic/Ordering Site: [facility] Ordering Physician: MATTIE ZELAYA PA-C [facility] Screening Digital - 01/26/24 - 1011 Report Status:Signed EXAM: [facility] Screening Digital EXAM DATE AND TIME: 01/26/2024 10:12 AM HISTORY: Screening. COMPARISON: 11/02/22, 10/30/21 TECHNIQUE: Bilateral digital breast tomosynthesis was performed in the CC and MLO projections. Computer aided detection with [employer] 3D 3.1 was employed. TISSUE DENSITY: c. The breasts are heterogeneously dense, which may obscure small masses. FINDINGS: A 9 mm focal nodular asymmetry is seen in the lateral left breast, posterior depth. CC and MLO spot compression tomosynthesis views and full lateral tomosynthesis views are recommended for further assessment. Circumscribed subcentimeter nodules scattered elsewhere in both breasts are without significant change, consistent with a benign process. No suspicious grouped microcalcifications or areas of architectural distortion are seen. The skin and vascularity are unremarkable. IMPRESSION: 1. Left breast focal asymmetry, for which additional views are recommended. The patient will be called back. 2. Stable mammographic appearance of the right breast. No evidence of malignancy is seen. BI-RADS: Category 0: Incomplete - Need Additional Imaging Evaluation RECOMMENDATION(S): 1: Special mammographic view(s) needed LEFT Dictating Physician: NURYS PINTO MD Electronically Signed by: NURYS PINTO MD Dic Date/Time: 01/26/24 1536 Sign date/Time: 01/26/24 1538 Procedure Note Nurys Pinto MD - 05/17/2024 [facility] Diagnostic Imaging Department [address] [place] [address] Patient: POLINA CASANOVA./Age/Sex: 1980 - 43- F Unit#: [id number] Location/Status: SPDIMAM/REG CLI Mnemonic/Ordering Site: [facility] Ordering Physician: MATTIE ZELAYA PA-C [facility] Screening Digital - 01/26/24 - 1011 Report Status:Signed EXAM: [facility] Screening Digital EXAM DATE AND TIME: 01/26/2024 10:12 AM HISTORY: Screening. COMPARISON: 11/02/22, 10/30/21 TECHNIQUE: Bilateral digital breast tomosynthesis was performed in the CCand MLO projections. Computer aided detection with [employer] 3D 3.1was employed. TISSUE DENSITY: c. The breasts are heterogeneously dense, which mayobscure small masses. FINDINGS: A 9 mm focal nodular asymmetry is seen in the lateral left breast,posterior depth. CC and MLO spot compression tomosynthesis views and full lateral tomosynthesis views are recommended for further assessment. Circumscribed subcentimeter nodules scattered elsewhere in both breastsare without significant change, consistent with a benign process. Nosuspicious grouped microcalcifications or areas of architectural distortion are seen.The skin and vascularity are unremarkable. IMPRESSION: 1. Left breast focal asymmetry, for which additional views arerecommended. The patient will be called back. 2. Stable mammographic appearance of the right breast. No evidence of malignancy is seen. BI-RADS: Category 0: Incomplete - Need Additional Imaging Evaluation RECOMMENDATION(S): 1: Special mammographic view(s) needed LEFT Dictating Physician: NURYS PINTO MD Electronically Signed by: NURYS PINTO MD Dic Date/Time: 01/26/241535 Sign date/Time: 01/26/241537 Mattie SONI IMG BI PROCEDURES Final Result from Last 3 Months or Most Recently Relevant to Health Maintenance Insurance [facility] Care Teams Aquatics Specialist Relationship Specialty Start Date End Date Physician, No Pcp PCP - General 08/03/24
--- OUTSIDE RECORDS SUMMARY | 2025-04-24 12:36 | XMS_ITS | Encounter Summary ---
Author Organization [employer] Address [address] [facility] [address] [place] [address] Care Team Providers Care Manager Planning Name Role Phone Leonor Mckee MD Primary Care Provider [phone] Encounter Details Date Type Department Care Team ([facility] st Contact Info) Description 04/18/2025 Results Follow-Up [facility] CHC MED & PEDS [address] [place], [place] [phone] Leonor Mckee MD [address] [place], [place] [phone] Cologuard colon cancer screening Social History Tobacco Use Types Packs/Day Years Used Date Smoking Tobacco: Never Passive Smoke Exposure: Never Smokeless Tobacco: Never Alcohol Use Standard Drinks/Week Comments Never 0 (1 standard drink = 0.6 oz pur e alcohol) Housing Stability Answer Date Recorded What is your housing situation today? I have gloria parker 03/22/[address] you li [...] PM EDT documented as of this encounter Plan of Treatment Not on file documented as of this encounter Visit Diagnoses Not on filedocumented in this encounter Care Teams Manager Planning Relationship Specialty Start Date End Date Leonor Mckee MD [address] [place] [id number] PCP - General Family Medicine 03/29/25 documented as of this encounter
--- OUTSIDE RECORDS SUMMARY | 2025-04-24 12:36 | XMS_ITS | Clinical Summary ---
Author Organization [employer] [facility] Address [address] [facility] 7 [place] [address] Care Team Providers Care Trail Construction Worker Name Role Phone Leonor Mckee MD Primary Care Provider [phone] Allergies No known active allergies Medications multivitamin () 27-0.8 MG tablet Take 1 tablet by mouth Once per day. 120 tablet 3 03/29/2025 Active Active Problems Problem Noted Date Diagnosed Date Cervical cancer screening 04/24/2025 Assessment & Plan (04/24/2025 9:20 AM EDT): 44 y.o. here for cervical cancer screening. Will continue monitoring following ASCCP guidelines. Infertility counseling 03/29/2025 Increased urinary frequency 03/29/2025 Encounters Date Type Department Care Team Description 04/24/2025 9:00 AM EDT Procedure Visit [facility] [address] [place] [address] Leonor Mckee MD Cervical cancer screening (Primary Dx) 04/24/2025 Travel 04/18/2025 Results Follow-Up [facility] [address] [place] [address] Leonor Mckee MD Cologuard colon cancer screening 04/06/2025 Telephone [facility] [employer] [address] [place] [address] Leonor Mckee MD 04/04/2025 Population Health Risk Score [facility] (C3) Department [address] [id number] Provider, Population Health Generic 04/03/2025 Travel 03/29/2025 10:45 AM EDT Office Visit [facility] [address] [place] [address] Leonor Mckee MD Infertility counseling (Primary Dx); Screening for colon cancer; Class 1 obesity with serious comorbidity and body mass index (BMI) of 34.0 to 34.9 in adult, unspecified obesity type; Encounter for health-related screening; Encounter for immunization; Increased urinary frequency 03/29/2025 Travel 03/27/2025 Telephone [facility] [address] [place] [address] Leonor Mckee MD CHART PREP 03/22/2025 Patient Outreach [facility] [address] [place], [place] [phone] Rigo Luevano MD Pre-visit Planning (SDOH screening negative and Tobacco screening negative) from Last 3 Months Immunizations Immunization Administration Dates Next Due Tdap 03/29/2025 Family History Medical History Relation Name Comments Alzheimer's disease Father Alzheimer's disease Mother Constipation Mother Hypertension Mother Thyroid disease Sister Relation Name Status Comments Father Mother Sister Social History Tobacco Use Types Packs/Day Years Used Date Smoking Tobacco: Never Passive Smoke Exposure: Never Smokeless Tobacco: Never Tobacco Cessation:Counseling Given: Not Answered Alcohol Use Standard Drinks/Week Comments Never 0 (1 standard drink = 0.6 oz pur e alcohol) Housing Stability Answer Date Recorded What is your housing situation today? I have gloria keith 03/22/[address] you li [...] Don't know 03/28/2025 4: 24 PM EDT Last Filed Vital Signs Vital Sign Reading [...] Mass Index 34.63 04/24/2025 8:50 AM EDT Plan of Treatment Health Maintenance Due Date Last Done Comments CT Colonography 1979 Colonoscopy 1979 Depression Screening 1979 FIT 1979 HIV Screening 1979 Lipid Panel 1979 Sigmoidoscopy 1979 Disability Screening 1979 Alcohol/Substance Use Screening 1991 Family Planning (PISQ) 10/01/1994 HPV Vaccines (1 - 3-dose series) 10/01/1994 Hepatitis C Screening 10/01/1997 Hepatitis B Vaccines (1 of 3 - 19+ 3-dose series) 10/01/1998 HPV/Cotest 10/01/2009 Cervical Cancer Screening 10/21/2024 Pap Smear 10/21/2024 10/21/2021 COVID-19 Vaccine (1 - 2023-2 5 season) 2025 Mammogram 08/03/2025 08/03/2024, 08/03/2024 Influenza Vaccine (#1) 2026 Postp oned from 04/02/2025 (Patient Refused) SDOH Screening 03/22/2026 03/22/2025 FOBT 04/11/2026 04/11/2025 Tobacco Screening 04/24/2026 04/24/2025 Colorectal Cancer Screening 04/11/2028 FIT DNA/Cologuard 04/11/2028 04/11/2025 Zoster Vaccines (1 of 2) 10/01/2029 DTaP/Tdap/Td Vaccines (2 - T d or Tdap) 03/29/2035 03/29/2025 RSV Patients and Patients Aged 60 years or older (1 - 1-dose 75+ series) 10/01/2054 HIB [...] patient's age to complete this topic Meningococcal Vaccine Aged Out No nino helen eligible based on patient's age to complete this topic Pneumococcal Vaccine: Pediatrics (0 to 5 Years) and At-Risk Patients (6 to 49) Years Aged Out No longer eligible b ased on patient's age to complete this topic RSV under 20 months Aged Out No longe r eligible based on patient's age to complete this topic Rotavirus Vaccines Aged Out No longer eligible based on patient's age to complete this topic Procedures Procedure Name Priority Date/Time Associated Diagnosis Comments LAB COLOGUARD COLON CANCER SCREEN Routine 04/11/2025 8:50 AM EDT Screening for colon cancer PAP SMEAR Routine 10/21/2021 from Last 3 Months or Most Recently Relevant to Health Maintenance Results * Cologuard?? colon cancer screening (04/11/2025 8:50 AM EDT) Cologuard Result Negative Negative 04/17/20 8:30 PM EDT [facility] (CLIA #:[id number]) Comment: The Cologuard (TM) test was performed on this specimen. NEGATIVE TEST RESULT. A negative Cologuard result indicates a low likelihood that a colorectal cancer (CRC) or advanced adenoma (adenomatous polyps with more advanced pre-malignant features) is present. The chance that a person with a negative Cologuard test has a colorectal cancer is less than 1 in 1500 (negative predictive value >99.9%) or has an advanced adenoma is less than 5.3% (negative predictive value 94.7%). These data are based on a prospective cross-sectional study of 10,000 individuals at average risk for colorectal cancer who were screened with both Cologuard and colonoscopy. (Amarjit Hughes al, N Engl J Med 2014;370(14):1286- 1297) The normal value (reference range) for this assay is negative. COLOGUARD RE-SCREENING RECOMMENDATION: Periodic colorectal cancer screening is an important part of preventive healthcare for asymptomatic individuals at average risk for colorectal cancer. Following a negative Cologuard result, the [place] [employer] Society and U.S. Multi-Society Task Force screening guidelines recommend a Cologuard re-screening interval of 3 years. References: [place] [employer] Guideline for Colorectal Cancer Screening: https://www.cancer.org/cancer/aluxp-linbbc-fmatuh/orqmqitdx-frxypycgc-rydtcmh/ac s-rec ommendations.html.; Fly DK, Malvin CR, Paulina FraserK, Colorectal Cancer Screening: Recommendations for Physicians and Patients from the U.S. Multi-Society Task Force on Colorectal Cancer Screening , Am J Gastroenterology 2017; 112:6510-0899. TEST DESCRIPTION: Composite algorithmic analysis of stool DNA-biomarkers with hemoglobin immunoassay. Quantitative values of individual biomarkers are not reportable and are not associated with individual biomarker result reference ranges. Cologuard is intended for colorectal cancer screening of adults of either sex, 45 years or older, who are at average-risk for colorectal cancer (CRC). Cologuard has been approved for use by the U.S. FDA. The performance of Cologuard was established in a cross sectional study of average-risk adults aged 50-84. Cologuard performance in patients ages 45 to 49 years was estimated by sub-group analysis of near-age groups. Colonoscopies performed for a positive result may find as the most clinically significant lesion: colorectal cancer [4.0%], advanced adenoma (including sessile serrated polyps greater than or equal to 1cm diameter) [20%] or non- advanced adenoma [31%]; or no colorectal neoplasia [45%]. These estimates are derived from a prospective cross-sectional screening study of 10,000 individuals at average risk for colorectal cancer who were screened with both Cologuard and colonoscopy. (Amarjit Hughes al, N Engl J Med 2014;370(14):5473-8441.) Cologuard may produce a false negative or false positive result (no colorectal cancer or precancerous polyp present at colonoscopy follow up). A negative Cologuard test result does not guarantee the absence of CRC or advanced adenoma (pre-cancer). The current Cologuard screening interval is every 3 years. ([place] [employer] Society and U.S. Multi-Society Task Force). Cologuard performance data in a 10,000 patient pivotal study using colonoscopy as the reference method can be accessed at the following location: www.[employer]/results. Additional description of the Cologuard test process, warnings and precautions can be found at www.[employer]eth[employer]SOAK (Smart Operational Agricultural toolKit)rd.Anita Margarita. Stool specimen (specimen) 04/11/2025 8:50 AM EDT 04/13/2025 9:11 AM EDT Leonor Mckee MD LAB MOLECULAR DIAGNOSTICS ORD ERABLES Final Result [facility] (CLIA #:[id number]) [address] [place] [address], * Pap Smear (10/21/2021) Pap Smear 1. NILM 1. NILM Comment:HPV RNA E6/E7 NEGATI VE Swab 10/21/2021 Historical Provider LAB CYTOLOGY ORDERABLES F inal Result from Last 3 Months or Most Recently Relevant to Health Maintenance Insurance [place] [address] [address] Care Teams Trail Construction Worker Relationship Specialty Start Date End Date Leonor Mckee MD [address] [place] [address] PCP - General Family Medicine 03/29/25
--- OUTSIDE RECORDS SUMMARY | 2025-04-24 12:36 | XMS_ITS | Clinical Summary ---
Author Organization [facility] Address [address] [place] [address] Care Team Providers Care Administrative Assistant Coordinator Name Role Phone Amita Koroma PA-C Primary Care Provider [phone] Source Comments PLEASE NOTE, if this patient is a minor, it may be UNLAWFUL to discuss sensitive information that is contained in these records (such as FAMILY PLANNING, MENTAL HEALTH or SUBSTANCE ABUSE) with the minor patient's parent or other person without the patient's specific authorization.[facility] Allergies No known active allergies Medications cetirizine (ZYRTEC) 10 mg tabletIndicatio ns:Itchy skin Take 1 Tab by mouth once daily 30 Tab 1 0 Active ketoconazole (NIZORAL) 2 % creamIndication s:Tinea cruris Apply topically once daily 30 g 1 0 Active prenat.vits,eduardo ,rhg-suyj-tvxah per tabletIndicatio ns:prevent neural tube defect Take 1 Tablet by mouth once daily Indications: prevention of neural tube defect when 90 Tablet 1 1 Active metroNIDAZOLE (FLAGYL) 500 mg tabletIndicatio ns:BV (bacterial vaginosis) Take 1 Tablet by mouth 2 (two) times daily Avoid alcohol consumption during treatment and 48 hours post treatment. 14 Tablet 2 Active Active Problems Problem Noted Date Diagnosed Date Routine lab draw 09/13/2019 Social History Tobacco Use Types Packs/Day Years Used Date Smoking Tobacco: Never Smokeless Tobacco: Never Alcohol Use Standard Drinks/Week Comments Never 0 (1 standard drink = 0.6 oz pur e alcohol) Social Connections Answer Date Recorded Connectedness 0 04/14/2024 Financial Resource Strain Answer Date R ecorded Financial Resource Strain 0 2019 Stress Answer Date Recorded Stress 0 09/13/2019 Physical Activity Answer Date Recorded Physical Activity 0 09/13/2019 Food Insecurity Answer Date Recorded Food 0 04/27/2024 Transportation Needs Answer Date Record ed Transportation 0 09/13/2019 Housing Stability Answer Date Recorded Housing 0 09/13/2019 Safety and Environment Answer Date Fredy rded Safety 0 09/13/2019 Utilities Answer Date Recorded Utilities 0 09/13/2019 Employment Answer Date Recorded Stress 0 04/14/2024 Comments No Sex and Gender Information Value Date Recorded Sex Assigned at Female 10/09/2019 12:12 AM PDT Legal Sex Female 9:16 AM PST Gender Identity Female 10/09/2019 12:12 AM PDT Sexual Orientation Straight 10/09/2019 12 :12 AM PDT Last Filed Vital Signs Vital Sign Reading Time Taken Comments Blood Pressure 150/32 10/21/2021 1:29 PM EDT Pulse 78 10/21/2021 1:29 PM EDT Temperature 37 C (98.6 F) 10/21/2021 1:29 PM EDT Respiratory Rate 20 10/21/2021 1:29 PM EDT Oxygen Saturation 98% 05/22/2021 4:05 PM EDT Inhaled Oxygen Concentration - - Weight 78 kg (172 lb) 10/21/2021 1:29 PM EDT Height 155 cm (5' 1.02 ) 10/21/2021 1:29 PM EDT Body Mass Index 32.47 10/21/2021 1:29 PM EDT Plan of Treatment Health Maintenance Due Date Last Done Comments Anxiety Screening 1979 HPV Screening 1979 Hepatitis C Screening 1979 Lipid Screening 1979 Tobacco Screening 1979 HIV Screening 10/01/1994 Relationship Safety Screening/Counseling 10/01/1994 Imm-DTaP/Tdap/Td (1 - Tdap) 10/01/1998 Imm-Hepatitis B (1 of 3 - 19 + 3-dose series) 10/01/1998 Imm-HPV (1 - 3-dose SCDM series) 10/01/2006 Diabetes Screening 09/13/2022 09/13/2019 Annual Wellness (Adult): Indicated (All Coverage) 10/21/2022 10/21/2021 Hypertension Screening (#1) 10/21/2022 Alcohol and Drug Screen 08/02/2024 Depression Annual Screen 08/02/2024 Breast Cancer Screening (Mammogram) 08/03/2024 02/01/2024, 01/26/2024, 11/02/2022, Additional history exists CT Colonography 10/01/2024 Colonoscopy 10/01/2024 Colorectal Cancer Screening 10/01/2024 FIT/gFOBT 10/01/2024 Fecal DNA 10/01/2024 Flexible Sigmoidoscopy 10/01/2024 Cervical Cancer Screening 10/21/2024 Pap + HPV 10/21/2024 10/21/2021 Pap Smear 10/21/2024 10/21/2021 [id number] ( season) 2025 Imm-Influenza (#1) 2025 Cervical Ablation/Cold-Knife Conization Discontinued Cervical Cryotherapy Discontinued Colposcopy Discontinued Endometrial Biopsy Discontinued Excision/Leep Discontinued HPV Genotyping Discontinued Vaginal Pap Discontinued Vulvoscopy Discontinued Procedures Procedure Name Priority Date/Time Associated Diagnosis Comments HISTORIC MAMMOGRAM 02/01/2024 3: 00 AM EDT THIN PREP IMAGE PAP + HPV RNA E6/E7 W/RFLX HPV 16, 18/45 Routine 10/21/2021 1:35 PM EDT Papanicolaou smear, as part of routine gynecological examination Papanicolaou smear for cervical cancer screening COMPREHENSIVE METABOLIC PANEL Routine 09/13/2019 4:21 PM EST Missed menses from Last 3 Months or Most Recently Relevant to Health Maintenance Results * HISTORIC MAMMOGRAM (02/01/2024 3:00 AM EDT) 02/01/2024 3:00 AM EDT Amita Koroma PA-C [facility] MAMMO Final Result * THIN PREP IMAGE PAP + HPV RNA E6/E7 W/RFLX HPV 16, 18/45 (10/21/2021 1:35 PM EDT) CLINICAL INFORMATION See Note [employer] [facility] Comment:Routine exam LMP See Note [employer] [facility] Comment:[id number] PREV. PAP See Note [employer] [facility] Comment:NONE GIVEN PREV. BX [facility] SOURCE See Note [facility] Comment:Cervix STATEMENT OF ADEQUACY See Note [facility] Comment: Satisfactory for evaluation. Endocervical/transformation zone component absent. INTERPRETATION/RESU LT See Note [employer] Comment:Negative for intraep ithelial lesion or malignancy. INFECTION See Note [employer] Comment: Shift in vaginal bossman suggestive of bacterial vaginosis. COMMENT See Note [facility] Comment: This Pap test has been evaluated with computer assisted technology. BILINGUAL LOAN PROCESSOR See Note [facility] Comment: SL, CT(ASCP) CT screening location: [place] [address] COMMENT [employer] HPV MRNA E6/E7 Not Detected Not Detected [facility] Comment: Methodology: Extruder Operator Helper-Mediated Amplification This assay detects E6/E7 viral messenger RNA (mRNA) from 14 high-risk HPV types (16,18,31,33,35,39,45,51,52,56,58,59,66,68). The analytical performance characteristics of this assay have been determined by [employer]. The modifications have not been cleared or approved by the FDA. This assay has been validated pursuant to the CLIA regulations and is used for clinical purposes. For additional information, please refer to http://education.Techlicious/faq/YAB420h4 (This link if provided for information/ educational purposes only.) [place] Cervix uteri structure / Unknown 10/21/2021 1:35 PM EDT 10/22/2021 5:34 AM EDT Narrative [facility] - 10/23/2021 6:36 PM EDT EXPLANATORY NOTE: The Pap is a screening test for cervical cancer. It is not a diagnostic test and is subject to false negative and false positive results. It is most reliable when a satisfactory sample, regularly obtained, is submitted with relevant clinical findings and history, and when the Pap result is evaluated along with historic and current clinical information. us Amita Koroma PA-C LAB - PATHOLOGY AND CYTOLOGY AMBULATORY Final Result [facility] [address] [address], [facility] [address] [address] * COMPRE METAB PANEL (CMP) (09/13/2019 4:21 PM EST) GLUCOSE 91 70 - 100 mg/dL [facility] Comment:Reference range appl icable to fasting specimens only BUN 12 5 - 25 mg/dL [facility] CREAT 0.62 0.5 - 1.1 mg/dL [facility] GLOMERULAR FILTRATION RATE > 60 [facility] Comment: If patient is -Pakistani, multiply result by 1.21 Chronic Kidney Disease: < 60 ml/min/1.73 square meters Kidney Failure: < 15 ml/min/1.73 square meters SODIUM 135 135 - 145 mEq/L [facility] POTASSIUM 3.9 3.5 - 5.5 mmol/L [facility] CHLORIDE 101 96 - 110 mmol/L [facility] CO2 28 21 - 32 mmol/L [facility] ANION GAP 6 3 - 11 [facility] CALCIUM 9.5 8.5 - 10.5 mg/dL [facility] TOTAL PROTEIN 7.6 6.0 - 8.0 G/dL [facility] ALBUMIN 4.0 3.2 - 5.0 G/dL [facility] BILI, TOTAL 0.6 0.0 - 1.4 mg/dL [facility] SGOT 11 10 - 42 U/L [facility] SGPT 14 10 - 60 U/L [facility] ALK PHOS 70 42 - 121 U/L [facility] Blood specimen (specimen) Blood / Unknown 09/13/2019 4:21 PM EST 09/13/2019 4:29 PM EST Narrative [facility] - 09/13/2019 6:29 PM EST [employer], a member of [facility] [address] [place] [address] Farrowing Worker - Hyacinth Centeno MD PT ID [id number] ORD# [id number] Yakelin Newton PA-C LAB - BLOOD DRAW Final Result [facility] [address] [place] [address], from Last 3 Months or Most Recently Relevant to Health Maintenance Insurance [employer] [place] [phone] Care Teams Administrative Assistant Coordinator Relationship Specialty Start Date End Date Amita Koroma PA-C [address] [place] [address] PCP - General FAMILY MEDICINEZACHARIAH 03/20/22
--- OUTSIDE RECORDS SUMMARY | 2025-04-24 12:36 | XMS_ITS | Encounter Summary ---
Author Organization [employer] Address [address] [place] [address] Care Team Providers Care Business Administrator Name Role Phone Leonor Mckee MD Primary Care Provider [phone] Encounter Details Date Type Department Care Team (Latest Contact Info) Description 04/24/2025 Travel Social History Tobacco Use Types Packs/Day Years [...] on filedocumented in this encounter Care Teams Business Administrator Relationship Specialty Start Date End Date Leonor Mckee MD [address] [place] [address] PCP - General Family Medicine 03/29/25 documented as of this encounter
[2025-04-24 14:26] LABS: Appearance Urine Clear; Glucose Urine UA Negative (Negative); PH 5.5 (5.0-9.0); Specific Gravity - Urine 1.025 (1.005-1.025)
[2025-04-24 14:34] LABS: MANUAL DIFF FLAG NO
[2025-04-24 14:38] LABS: Hematocrit 40.8 % (37.0-47.0); Hemoglobin 13.3 g/dl (12.0-16.0); Imm Gran Abs Auto 0.04 X10*3/uL (0.00-0.03); Imm Gran Pct Auto 0.5 % (0.0-0.4); Lymphocytes Absolute Auto 2.1 X10*3/uL (1.2-4.9); Mean Corpuscular HGB Conc 32.6 g/dl (31.0-35.0); Mean Corpuscular Hemoglobin 30.0 pg (27.0-33.0); Mean Corpuscular Volume 92.1 fL (80.0-98.0); NRBC Abs Auto 0.000 X10*3/uL (0.0-0.012); NRBC Pct Auto 0.0 /100WBC (0.0-0.2); Platelet Count 252 X10*3/uL (160-400); Red Blood Count 4.43 X10*6/uL (4.20-5.50); White Blood Count 8.0 X10*3/uL (4.8-10.8)
[2025-04-24 14:58] LABS: Alanine Aminotransferase 19 U/L (0-31); Albumin Level 4.2 g/dL (3.5-5.0); Alkaline Phosphatase 65 U/L (39-117); Anion Gap 8 (12-20); Aspartate Amino Transferase 22 U/L (5-31); Blood Urea Nitrogen 12 mg/dL (9-16); Calcium 8.9 mg/dL (8.4-10.2); Carbon Dioxide 28 mmol/L (22-29); Chloride 107 mmol/L (96-108); Cholesterol 194 mg/dL (<200); Estimated Glomerular Filt Rate > 60; HDL Cholesterol 30 mg/dL (>40); Potassium 3.7 mmol/L (3.3-5.1); Sodium 139 mmol/L (135-145); Total Protein 7.4 g/dL (6.5-8.0); Triglycerides 210 mg/dL (<150)
[2025-04-24 16:29] LABS: Free T4 (Free Thyroxine) 0.91 ng/dL (0.71-1.85)
[2025-04-25 06:53] LABS: Rubeola IgG (Measles) >300.00 AU/mL
[2025-04-25 08:16] LABS: HIV Num 1 0.04 S/CO (0.00-0.99); ~HepC Num1 0.26 S/CO (0.00-0.79); ~Hepatitis C Antibody Nonreactive (Nonreactive)
== END 2025-04-24 10:22 | disposition home or self-care (01) ==
LOC: HO.CHCLDS 10:21
PROVIDERS: Visit Provider Family Medicine
DX: Z01.84 Encounter for antibody response examination (principal); Z12.4 Encounter for screening for malignant neoplasm of cervix; Z11.59 Encounter for screening for other viral diseases; Z11.4 Encounter for screening for human immunodeficiency virus [HIV]; E66.811 Obesity, class 1; R35.0 Frequency of micturition; Z68.34 Body mass index [BMI] 34.0-34.9, adult
CPT/HCPCS: 36415; 80053; 80061; 81001; 82306; 84439; 84443; 85025; 86735; 86762; 86765; 86787; 86803; 87389

== ENCOUNTER 2025-06-05 13:39 | Outpatient (REF) | payer MEDICAID, SELFPAY ==
--- NOTE | ~2025-06-05 | US_ITS ---
EXAMINATION: US PELVIS CLINICAL INFORMATION: Fibroids, infertility issues. 44-year-old female. LMP = 05/2025 COMPARISON: None available. TECHNIQUE: Ultrasound of the pelvis is performed using both transabdominal and transvaginal transducers along with Doppler. Transvaginal imaging is performed due to inadequate visualization transabdominally. FINDINGS: UTERUS: The uterus is anteverted, anteflexed, and measures 10.9 x 7.3 x 6.6 cm. Uterine volume = 274.7 mL. Within the endocervical region, there is a complex cystic area identified which is nonvascular, measuring approximately 3.1 x 1.7 x 2.0 cm. This is most likely in the endometrial canal and likely represents debris and/or hemorrhage. Short-term follow-up recommended. The endometrium is obscured by large uterine fibroids as detailed below. Grossly no significant endometrial thickening although visualization is quite suboptimal. The uterus is lobular in contour and has heterogeneous myometrial echogenicity. There are 2 large uterine segment fibroid is present. A 5.2 x 4.0 x 4.8 cm ventral mid uterine segment fibroid is present. A 2.8 x 3.2 x 2.5 cm dorsal mid uterine segment fibroid is present. ADNEXA: Both ovaries are visualized. There is normal color flow to the adnexa. There is no ovarian torsion. There is no pelvic ascites or fluid collection. There are no adnexal masses. Right ovary measures 4.4 x 3.4 x 4.4 cm. There is a minimally complex cyst present measuring 3.5 x 1.8 x 2.4 cm. Otherwise normal sonographic appearance. Left ovary measures 3.0 x 2.2 x 2.9 cm. There is a small follicular cyst measuring 1.7 cm. Normal sonographic appearance otherwise. US/US pelvic and transvaginal IMPRESSION: 1. There are 2 large fibroids within the central uterus, the larger measuring up to 5.2 cm. These obscure the endometrial canal. 2. There is a mildly complex fluid collection in the endocervical canal, which may be retained hemorrhage and/or debris. This is most likely benign. Recommend follow-up exam in 6 weeks' time. 3. There is a mildly complex cyst in the right ovary measuring up to 3.5 cm as detailed, also suitable for a 6 weeks interval follow-up. Electronically signed by: Benji Ching MD 06/05/2025 02:53 PM [facility]
--- OUTSIDE RECORDS SUMMARY | 2025-06-05 16:42 | XMS_ITS | Encounter Summary ---
Author Organization [employer] Address [address] [facility] [address] [place] [address] Care Team Providers Care Lace Mender Name Role Phone Leonor Mckee MD Primary Care Provider [phone] Encounter Details Date Type Department Care Team ([facility] st Contact Info) Description 04/18/2025 Results Follow-Up [facility] [address] [place], [place] [phone] Leonor Mckee MD [address] [place], [place] [phone] Cologuard colon cancer screening Social History Tobacco [...] on filedocumented in this encounter Care Teams Lace Mender Relationship Specialty Start Date End Date Leonor Mckee MD [address] [place] [phone] PCP - General Family Medicine 03/29/25 documented as of this encounter
--- OUTSIDE RECORDS SUMMARY | 2025-06-05 16:42 | XMS_ITS | Clinical Summary ---
Author Organization [facility] Address [address] [place] [address] Phone Care Team Providers Care Nutrition Services Aide Name Role Phone Physician, No Pcp Primary [...] Health Maintenance Due Date Last Done Comments Colorectal Cancer Screening: Colonoscopy 1979 DTaP,Tdap,and Td Vaccines (1 - Tdap) 10/01/1998 Hepatitis B Vaccines (1 of 3 - 19+ 3-dose series) 10/01/1998 Cervical Cancer Screening: P ap Smear 10/01/2000 HPV Vaccines (1 - 3-dose SCD M series) 10/01/2006 HIV Screening 07/05/2022 Hepatitis C Screening 07/05/2022 [...] Procedure Name Priority Date/Time Associated Diagnosis Comments [facility] SCREENING DIGITAL Routine 01/26/2024 3:38 PM EDT Encounter for screening mammogram for malignant neoplasm of breast from Last 3 Months or Most Recently Relevant to Health Maintenance Results * [facility] SCREENING DIGITAL (01/26/2024 3:38 PM EDT) Anatomical Region Laterality Modality Mammography 01/26/2024 9:48 AM EDT Narrative 01/26/2024 3:38 PM EDT [facility] Diagnostic Imaging Department [address] [place] [address] Patient: POLINA CASANOVA /Age/Sex: 1980 - 43 - F Unit#: [id number] [facility] Ordering Physician: MATTIE ZELAYA PA-C [facility] Screening Digital - 01/26/24 - 1011 Report Status:Signed EXAM: [facility] Screening Digital EXAM DATE AND TIME: 01/26/2024 10:12 AM HISTORY: Screening. COMPARISON: 11/02/22, 10/30/21 TECHNIQUE: Bilateral digital breast tomosynthesis was performed in the CC and MLO projections. Computer aided detection with Barnana 3D 3.1 was employed. TISSUE DENSITY: c. [...] Procedure Note Nurys Pinto MD - 05/17/2024 [facility] Diagnostic Imaging Department [address] [place] [address] Patient: POLINA CASANOVA D.O.B./Age/Sex: 1980 - 43- F Unit#: [id number] Location/Status: SPDIMAM/REG CLI Mnemonic/Ordering Site: [facility] Ordering Physician: MATTIE ZELAYA PA-C [facility] Screening Digital - 01/26/24 - 1011 Report Status:Signed EXAM: [facility] Screening Digital EXAM DATE AND TIME: 01/26/2024 10:12 AM HISTORY: Screening. COMPARISON: 11/02/22, 10/30/21 TECHNIQUE: Bilateral digital breast tomosynthesis was performed in the CCand MLO projections. Computer aided detection with Barnana 3D 3.1was employed. TISSUE DENSITY: c. The [...] Most Recently Relevant to Health Maintenance Insurance [facility] Care Teams Nutrition Services Aide Relationship Specialty Start Date End Date Physician, No Pcp PCP - General 08/03/24
--- OUTSIDE RECORDS SUMMARY | 2025-06-05 16:42 | XMS_ITS | Clinical Summary ---
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 120 tablet 3 03/29/2025 Active fluconazole (Diflucan) 150 MG tabletIndicatio ns:Acute vaginitis Take 1 tablet (150 mg) by mouth 1 (one) time for 1 dose. 1 tablet 05/10/2025 Active Problems Problem Noted Date Diagnosed Date Cervical cancer screening 04/24/2025 Assessment & Plan (04/24/2025 9:20 AM EDT): 44 y.o. here for cervical cancer screening. Will continue monitoring following ASCCP guidelines. Infertility counseling 03/29/2025 Increased urinary frequency 03/29/2025 Encounters Date Type Department Care Team Description 05/10/2025 Results Follow-Up [facility] [address] [place] [address] Leonor Mckee MD Pap Smear, HPV High Risk with Reflex to Subtypes 04/24/2025 9:00 AM EDT Procedure Visit [facility] [address] [place] [address] Leonor Mckee MD Cervical cancer screening (Primary Dx) 04/24/2025 Orders Only [facility] [address] [place] [address] Leonor Mckee MD 04/24/2025 Travel 04/18/2025 Results Follow-Up [facility] [address] [place] [address] Leonor Mckee MD Cologuard colon cancer screening 04/06/2025 Telephone [place] [employer] [address] [place], [place] [phone] Leonor Mckee MD 04/04/2025 Population Health Risk Score [facility] () Department [address] [place] [phone] Provider, Population Health Generic 04/03/2025 Travel 03/29/2025 10:45 AM EDT Office Visit [facility] [address] [place] [address] Leonor Mckee MD Infertility counseling (Primary Dx); Screening for colon cancer; Class 1 obesity with serious comorbidity and body mass index (BMI) of 34.0 to 34.9 in adult, unspecified obesity type; Encounter for health-related screening; Encounter for immunization; Increased urinary frequency 03/29/2025 Travel 03/27/2025 Telephone [facility] [address] [place] [address] Leonor Mckee MD CHART PREP 03/22/2025 Patient Outreach [facility] [address] [place] [address] Rigo Luevano MD Pre-visit Planning (SDOH screening [...] Colonoscopy 1980 Depression Screening 1980 FIT 1980 Sigmoidoscopy 1980 Disability Screening 1979 Alcohol/Substance Use Screening 1991 Family Planning (PISQ) 10/01/1994 HPV Vaccines (1 - 3-dose series) 10/01/1994 Hepatitis B Vaccines (1 of 3 - 19+ 3-dose series) 10/01/1998 COVID-19 Vaccine (2023-2 5 season) 2025 Mammogram 08/03/2025 08/03/2024, 08/03/2024 Influenza Vaccine (#1) 2026 Postp oned from 04/02/2025 (Patient Refused) SDOH Screening 03/22/2026 03/22/2025 FOBT 04/11/2026 04/11/2025 Tobacco Screening 04/24/2026 04/24/2025 Colorectal Cancer Screening 04/11/2028 FIT DNA/Cologuard 04/11/2028 04/11/2025 Pap Smear 04/24/2028 04/24/2025, 10/21/2021 Zoster Vaccines (1 of 2) 10/01/2029 Cervical Cancer Screening 04/24/2030 HPV/Cotest 04/24/2030 04/24/2025 Lipid Panel 04/24/2030 04/24/2025 DTaP/Tdap/Td Vaccines (2 - T d or Tdap) 03/29/2035 03/29/2025 RSV Patients and Patients Aged 60 years or older (1 - 1-dose 75+ series) 10/01/2054 HIV Screening Completed 04/24/2025 Hepatitis C Screening Completed 04/24/2025 HIB Vaccines Aged Out No longer eligi [...] Procedure Name Priority Date/Time Associated Diagnosis Comments US PELVIS TRANSVAGINAL Routine 5 2:05 PM EST Infertility counseling URINALYSIS, COMPLETE, WITH REFLEX TO CULTURE Routine [...] Routine 04/24/2025 10:19 AM EDT Infertility counseling PAP SMEAR Routine 04/24/2025 9:10 AM EDT Cervical cancer screening HPV DNA, LOW/HIGH RISK Routine 9:10 AM EDT Cervical cancer screening LAB COLOGUARD COLON CANCER SCREEN Routine 04/11/2025 8:50 AM EDT Screening for colon cancer from Last 3 Months Results * US Pelvis Transvaginal (06/05/2025 2:05 PM EST) Anatomical Region Laterality Modality Pelvis Ultrasound 06/05/2025 2:05 PM EST Narrative 06/05/2025 2:57 PM EST [facility] [place] [facility] [place] [address] Ultrasound Report Signed Patient: Polina Elena MR#: [id number] : 1980 Acct:[id number] Age/Sex: 44 / F ADM Date: 06/05/25 Loc: HO.HMGCX Attending Dr: Leonor Mckee MD Ordering Physician: Leonor Mckee MD Date of Service: 06/05/25 Procedure(s): US pelvic and transvaginal Accession Number(s): [id number] cc: Leonor Mckee MD Reason for Exam: FIBROIDS, INFERTILITY ISSUES EXAMINATION: US PELVIS CLINICAL INFORMATION: Fibroids, infertility issues. 44-year-old female. LMP = 05/2025 COMPARISON: None available. TECHNIQUE: Ultrasound of the pelvis is performed using both transabdominal and transvaginal transducers along with Doppler. Transvaginal imaging is performed due to inadequate visualization transabdominally. FINDINGS: UTERUS: The uterus is anteverted, anteflexed, and measures 10.9 x 7.3 x 6.6 cm. Uterine volume = 274.7 mL. Within the endocervical region, there is a complex cystic area identified which is nonvascular, measuring approximately 3.1 x 1.7 x 2.0 cm. This is most likely in the endometrial canal and likely represents debris and/or hemorrhage. Short-term follow-up recommended. The endometrium is obscured by large uterine fibroids as detailed below. Grossly no significant endometrial thickening although visualization is quite suboptimal. The uterus is lobular in contour and has heterogeneous myometrial echogenicity. There are 2 large uterine segment fibroid is present. A 5.2 x 4.0 x 4.8 cm ventral mid uterine segment fibroid is present. A 2.8 x 3.2 x 2.5 cm dorsal mid uterine segment fibroid is present. ADNEXA: Both ovaries are visualized. There is normal color flow to the adnexa. There is no ovarian torsion. There is no pelvic ascites or fluid collection. There are no adnexal masses. Right ovary measures 4.4 x 3.4 x 4.4 cm. There is a minimally complex cyst present measuring 3.5 x 1.8 x 2.4 cm. Otherwise normal sonographic appearance. Left ovary measures 3.0 x 2.2 x 2.9 cm. There is a small follicular cyst measuring 1.7 cm. Normal sonographic appearance otherwise. US/US pelvic and transvaginal IMPRESSION: 1. There are 2 large fibroids within the central uterus, the larger measuring up to 5.2 cm. These obscure the endometrial canal. 2. There is a mildly complex fluid collection in the endocervical canal, which may be retained hemorrhage and/or debris. This is most likely benign. Recommend follow-up exam in 6 weeks' time. 3. There is a mildly complex cyst in the right ovary measuring up to 3.5 cm as detailed, also suitable for a 6 weeks interval follow-up. Electronically signed by: Benji Ching MD 06/05/2025 02:53 PM [facility] Dictated By: Benji Ching MD Signed By: <Electronically signed by Benji Ching MD in OV> 06/05/25 1453 DD/ 1405 TD/TT: 06/05/25 1436 Water Hauler: Procedure Note Donotuseinterpreter, Image - 06/05/2025 [facility] Primary [facility] [place] [address] Ultrasound Report Signed Patient: Polina Elena MR#: [id number] : 1980Acct:[id number] Age/Sex: 44 / FADM Date: 06/05/25 Loc: HO.HMGCX Attending Dr: Leonor Mckee MD Ordering Physician: Leonor Mckee MD Date of Service: 06/05/25 Procedure(s): US pelvic and transvaginal Accession Number(s): [id number] cc: Leonor Mckee MD Reason for Exam: FIBROIDS, INFERTILITY ISSUES EXAMINATION: US PELVIS CLINICAL INFORMATION: Fibroids, infertility issues. 44-year-old female. LMP = 05/2025 COMPARISON: None available. TECHNIQUE: Ultrasound of the pelvis is performed using both transabdominal and transvaginal transducers along with Doppler. Transvaginal imaging is performed due to inadequate visualization transabdominally. FINDINGS: UTERUS: The uterus is anteverted, anteflexed, and measures 10.9 x 7.3 x 6.6 cm. Uterine volume = 274.7 mL. Within the endocervical region, there is a complex cystic area identified which is nonvascular, measuring approximately 3.1 x 1.7 x 2.0 cm. This is most likely in the endometrial canal and likely represents debris and/or hemorrhage. Short-term follow-up recommended. The endometrium is obscured by large uterine fibroids as detailed below. Grossly no significant endometrial thickening although visualization is quite suboptimal. The uterus is lobular in contour and has heterogeneous myometrial echogenicity. There are 2 large uterine segment fibroid is present. A 5.2 x 4.0 x 4.8 cm ventral mid uterine segment fibroid is present. A 2.8 x 3.2 x 2.5 cm dorsal mid uterine segment fibroid is present. ADNEXA: Both ovaries are visualized. There is normal color flow to the adnexa. There is no ovarian torsion. There is no pelvic ascites or fluid collection. There are no adnexal masses. Right ovary measures 4.4 x 3.4 x 4.4 cm. There is a minimally complex cyst present measuring 3.5 x 1.8 x 2.4 cm. Otherwise normal sonographic appearance. Left ovary measures 3.0 x 2.2 x 2.9 cm. There is a small follicular cyst measuring 1.7 cm. Normal sonographic appearance otherwise. US/US pelvic and transvaginal IMPRESSION: 1. There are 2 large fibroids within the central uterus, the larger measuring up to 5.2 cm. These obscure the endometrial canal. 2. There is a mildly complex fluid collection in the endocervical canal, which may be retained hemorrhage and/or debris. This is most likely benign. Recommend follow-up exam in 6 weeks' time. 3. There is a mildly complex cyst in the right ovary measuring up to 3.5 cm as detailed, also suitable for a 6 weeks interval follow-up. Electronically signed by: Benji Ching MD 06/05/2025 02:53 PM [facility] Dictated By: Benji Ching MD Signed By: <Electronically signed by Benji Ching MD in OV> 06/05/25 1453 DD/ 1405 TD/TT: 06/05/25 1436 Water Hauler: us Leonor Mckee MD IMG US PROCEDURES Final Resul t * Urinalysis, Complete, with Reflex to Culture (04/24/2025 10:30 AM EDT) Color Urine Yellow [facility] Appearance Urine Clear [facility] PH 5.5 5.0 - 9.0 [facility] Glucose Urine UA Negative Negative mg/dL [facility] Urine Blood Negative Negative [facility] Specific [place] - Urine 1.025 1.005 - 1.025 [facility] Urine Protein Negative Neg-Trace mg/dL [facility] Urine Ketones Negative Negative mg/dL [facility] Nitrite Urine Negative Negative [facility] Leukocyte Esterase Urine Negative Negative [facility] RBC Urine 0-2 0 - 2 /HPF [facility] Urine WBC 0-5 0 - 5 /HPF [facility] Urine Squamous Epithelial Cell 0-2 0 - 2 /HPF [facility] Urine Bacteria None Seen None Seen [facility] Hyaline Casts, Urine 0-2 0 - 2 /LPF [facility] Urine 04/24/2025 10:3 0 AM EDT 04/24/2025 2:17 PM EDT Narrative [facility] - 04/24/2025 2:30 PM EDT [id number], Clean Catch us Leonor Mckee MD LAB URINE ORDERABLES Final Re sult [facility] [address] [place] [phone] * Hepatitis C Antibody with Reflex to HCV, RNA, Quantitative, Real-Time PCR (04/24/2025 10:25 AM EDT) Hepatitis C Antibody Nonreactive Nonreactive [facility] Comment:Antibodies to HCV no t detected; does not exclude early acuteHCV infection. Blood Venous blood specimen / Unknown 04/24/2025 10:25 AM EDT 04/24/2025 2:29 PM EDT us Leonor Mckee MD LAB BLOOD ORDERABLES Final Re sult Performing Organization Address City/[facility]/ZIP Co de Phone Number [facility] [address] [place] [phone] * HIV-1/2 Antigen and Antibodies, Fourth Generation, with Reflexes (04/24/2025 10:25 AM EDT) HIV AB/AG Nonreactive Nonreactive [facility] Comment:HIV-1 p24 Ag and/or HIV-1/HIV-2 Ab not detected.A test result that is nonreactive does not exclude thepossibility of exposure to or infection with HIV-1 and/orHIV-2. Nonreactive results in this assay for individualswith prior exposure to HIV-1 and/or HIV-2 may be due toantigen and antibody levels that are below the limit ofdetection of this assay.The Arnold AliniMissingames HIV Ag/Ab Combo assay result andsupplemental assay results should be interpreted inconjunction with the patient's clinical presentation,history and other laboratory results. If the results areinconsistent with clinical evidence, additional testing issuggested to confirm the result. Blood Venous blood specimen / Unknown 04/24/2025 10:25 AM EDT 04/24/2025 2:29 PM EDT us Leonor Mckee MD LAB BLOOD ORDERABLES Final Re sult Performing Organization Address City/[facility]/ZIP Co de Phone Number [facility] [address] [place] [phone] * Vitamin D, 25-Hydroxy, Total, Immunoassay (04/24/2025 10:23 AM EDT) Pathologist [facility] Vitamin D 25-OH Total 36.6 >30 ng/mL [facility] Comment: Health Based Reference Values*< 20 ng/mL Jijaigzzd85-76 ng/mL Insufficient> 30 ng/mL Sufficient*Desirae DOMINGUEZ. N [...] ORDERABLES Final Re sult Performing Organization Address [facility]/ZIP Co de Phone Number [facility] [address] [place] [phone] * (ABNORMAL) TSH W/Reflex to FT4 (04/24/2025 10:23 AM EDT) TSH reflex Free T4 5.02(H) 0.32 - 4.0 uIU/mL [facility] Blood Venous blood specimen / Unknown 04/24/2025 10:23 AM EDT 04/24/2025 2:29 PM EDT us Leonor Mckee MD LAB BLOOD ORDERABLES Final Re sult [facility] [address] [place] [phone] * Measles, Mumps, and Rubella (MMR) Antibodies??(IgG) Panel, Immune Status (04/24/2025 10:23 AM EDT) Pathologist [facility] Mumps Virus IgG Antibody >300.00 AU/mL [facility] Comment:AU/mL Interpretation ------- <9.00 Not consistent with immunity9.00-10.99 Equivocal>10.99 Consistent with immunityThe presence of mumps IgG antibody suggests immunizationor past or current infection with mumps virus. Rubella IgG Antibody 12.90 Index [facility] Comment:Index Interpretatio n ----- <0.90 Not consistent with immunity 0.90-0.99 Equivocal > or = 1.00 Consistent with immunityThe presence of rubella IgG antibody suggestsimmunization or past or current infection withrubella virus.THIS TEST WAS PERFORMED AT:[facility] [place] [phone] WISE MD Rubeola IgG (Measles) >300.00 AU/mL [facility] Comment:AU/mL Interpretation ----- <13.50 Not consistent with fccidtuz70.50-16.49 Equivocal>16.49 Consistent with immunityThe presence of measles IgG suggests immunization orpast or current infection with measles virus.For additional information, please refer [email or web address]/[email or web address](This link is being provided for informational/educational purposes only.) Blood 04/24/2025 10:2 3 AM EDT 04/24/2025 2:29 PM EDT us Leonor Mckee MD LAB BLOOD ORDERABLES Final Re sult [facility] [address] [place], [place] [phone] * (ABNORMAL) CBC auto differential (04/24/2025 10:23 AM EDT) White Blood Count 8.0 4.8 - 10.8 X10*3/uL [facility] Red Blood Count 4.43 4.20 - 5.50 X10*6/uL [facility] Hemoglobin 13.3 12.0 - 16.0 g/dl [facility] Hematocrit 40.8 37.0 - 47.0 % [facility] Mean Corpuscular Volume 92.1 80.0 - 98.0 fL [facility] Mean Corpuscular Hemoglobin 30.0 27.0 - 33.0 pg [facility] Mean Corpuscular HGB Conc 32.6 31.0 - 35.0 g/dl [facility] Red Cell Distribution Width 12.9 11.0 - 16.0 % [facility] Platelet Count 252 160 - 400 X10*3/uL [facility] Mean Platelet Volume 11.6 9.4 - 12.3 fL [facility] Neutrophils Percent Auto 62.3 45 - 73 % [facility] Imm Gran Pct Auto 0.5(H) 0.0 - 0.4 % [facility] Lymphocytes Percent Auto 26.1 20 - 40 % [facility] Monocytes Percent Auto 8.5 2 - 11 % [facility] Eosinophils Percent Auto 2.1 0 - 4 % [facility] Basophils Percent Auto 0.5 0 - 2 % [facility] NRBC Pct Auto 0.0 0.0 - 0.2 /100WBC [facility] Neutrophils Absolute Auto 5.0 2.0 - 8.3 x10*3/uL [facility] Imm Gran Abs Auto 0.04(H) 0.00 - 0.03 X10*3/uL [facility] Lymphocytes Absolute Auto 2.1 1.2 - 4.9 X10*3/uL [facility] Monocytes Absolute Auto 0.7 0.1 - 1.2 X10*3/uL [facility] Eosinophils Absolute Auto 0.2 0.0 - 0.4 X10*3/uL [facility] Basophils Absolute Auto 0.0 0.0 - 0.2 X10*3/uL [facility] NRBC Abs Auto 0.000 0.0 - 0.012 X10*3/uL [facility] Blood Venous blood specimen / Unknown 04/24/2025 10:23 AM EDT 04/24/2025 2:29 PM EDT Leonor Mckee MD LAB BLOOD ORDERABLES Final Re sult [facility] [address] [place] [phone] * T4, Free (04/24/2025 10:23 AM EDT) Free T4 (Free Thyroxine) 0.91 0.71 - 1.85 ng/dL [facility] 04/24/2025 10:2 3 AM EDT 04/24/2025 2:29 PM EDT us Leonor Mckee MD LAB BLOOD ORDERABLES Final Re sult [facility] [address] [place] [phone] * (ABNORMAL) Lipid Panel, Standard (04/24/2025 10:23 AM EDT) Triglycerides 210(H) <150 mg/dL [facility] Comment:Desirable Triglyceri de: less than 150 mg/dLBorderline High Triglyceride 150-199 mg/dLHigh Triglyceride: 200-499 mg/dLVery High Triglyceride: greater than or equal to 5OO mg/dL Cholesterol 194 <200 mg/dL [facility] Comment:Desirable Cholestero l: less than 200 mg/dLBorderline High Cholesterol: 200-239 mg/dLHigh Cholesterol: greater than 239 mg/dL LDL Cholesterol Calculated 122(H) <100 mg/dL [facility] Comment:Desirable LDL: less than 100 mg/dLNear Optimal/Above Optimal LDL: 110- 129 mg/dLBorderline High LDL: 130-159 mg/dLHigh LDL: 160-189 mg/dLVery High LDL: greater than or equal to 190 mg/dL HDL Cholesterol 30(L) >40 mg/dL [facility] Comment:Desirable HDL: great er than 40 mg/dL Note: This HDL assay may give artificially low results in patients with liver disease. Blood Venous blood specimen / Unknown 04/24/2025 10:23 AM EDT 04/24/2025 2:29 PM EDT us Leonor Mckee MD LAB BLOOD ORDERABLES Final Re sult [facility] [address] [place] [phone] * (ABNORMAL) Comprehensive Metabolic Panel (04/24/2025 10:23 AM EDT) Sodium 139 135 - 145 mmol/L [facility] Potassium 3.7 3.3 - 5.1 mmol/L [facility] Chloride 107 96 - 108 mmol/L [facility] Carbon Dioxide 28 22 - 29 mmol/L [facility] Anion Gap 8(L) 12 - 20 [facility] Urea Nitrogen (BUN) 12 9 - 16 mg/dL [facility] Creatinine, Serum 0.61 0.5 - 1.4 mg/dL [facility] Estimated Glomerular Filt Rate >60 [facility] Comment:Chronic Kidney Disea se: Estimated GFR < 60 mL/min/1.48l6Awvnep Kidney Disease: Estimated GFR < 15 mL/min/1.73m2 Glucose 89 60 - 115 mg/dL [facility] Calcium 8.9 8.4 - 10.2 mg/dL [facility] Bilirubin, Total 0.5 0.0 - 1.0 mg/dL [facility] Aspartate Amino Transferase 22 5 - 31 U/L [facility] Alanine Aminotransferase 19 0 - 31 U/L [facility] Total Protein 7.4 6.5 - 8.0 g/dL [facility] Albumin Level 4.2 3.5 - 5.0 g/dL [facility] Alkaline Phosphatase 65 39 - 117 U/L [facility] Blood Venous blood specimen / Unknown 04/24/2025 10:23 AM EDT 04/24/2025 2:29 PM EDT us Leonor Mckee MD LAB BLOOD ORDERABLES Final Re sult [facility] [address] [place] [phone] * Varicella Zoster Antibody, IgG (04/24/2025 10:19 AM EDT) Varicella IgG Antibody 3.61 S/CO [facility] Comment:Signal to Cut-off S/ CO Interpretation [...] Antibody Immunity Screen, ACIF.THIS TEST WAS PERFORMED AT:[facility] [place] [phone] WISE MD Blood Venous blood specimen / Unknown 04/24/2025 10:19 AM EDT 04/24/2025 2:29 PM EDT Leonor Mckee MD LAB BLOOD ORDERABLES Final Re sult Performing Organization Address [facility]/ZIP Co de Phone Number [facility] [address] [place] [phone] * HPV High Risk with Reflex to Subtypes (04/24/2025 9:10 AM EDT) HPV High Risk Negative Negative [facility] HPV Genotype 16 Negative Negative [facility] HPV Genotype 18 Negative Negative [facility] Comment:HPV testing performe d at [facility] (CLIA#[id number]), [address] [place] [address].Testing for HPV was performed using the [employer] MIGEL 6800system. The presence of HPV in the female genital tract isassociated with a number of diseases, including cervicalcarcinoma. The HPV DNA high risk pool tests for HPV 31, 33,35, 39, 45, 51, 52, 56, 58, 59, 66 and 68. The testing forHPV 16 and 18 genotypes has also been performed. A positiveresult indicates detection of nucleic acid sequences fromone or more subtypes, whereas a negative result indicatessuch sequences were not detected. Pap Vial 04/24/2025 9:10 AM EDT 04/25/2025 11:28 AM EDT Leonor Mckee MD LAB BLOOD ORDERABLES Final Re sult Performing Organization Address [facility]/ZIP Co de Phone Number [facility] [address] [place] [phone] * Pap Smear (04/24/2025 9:10 AM EDT) Swab Cervical swab / Unknown 04/24/2025 9:10 AM EDT 04/25/2025 11:28 AM EDT [facility] - 04/30/2025 2:47 PM EDT ----- ------- Name: Polina Elena Age/Sex: 44/F : 1980 Unit#: [id number] Attend Dr: Leonor Mckee MD Re04/24/25 Status: [facility] REF Location: HO.LNP Disch: ----- ------- SPEC : [id number] RECD: 04/25/25 STATUS: HODA SEQUEIRA NUM: [id number] DIANE: 04/24/[address] [facility] [address]: Leonor Mckee MD ENTERED: 04/25/25 SP TYPE: Pap [facility] OT : ORDERED: Pap Smear Interpretation Satisfactory for evaluation. Negative for intraepithelial lesion or malignancy. No endocervical cells seen. Fungal organisms consistent with Wanda species. HPV High Risk: Negative HPV Genotyping 16: Negative HPV Genotyping 18: Negative Clinical Information LMP: Unknown date Previous PAP test: Unknown date/findings Other history: Cervical cancer screening Material Received ThinPrep-Cervical PAP Disclaimer As of May 24, 2024, the technical services to include automated prescreening performed by the ThinPrep Imaging System, PAP screening and HPV testing will be performed at [facility] (CLIA #[id number]), [address] [place] [address]. Testing for HPV was performed using the [employer] MIGEL 6800 system. The presence of HPV in the female genital tract is associated with a number of diseases, including cervical carcinoma. The HPV DNA high risk pool tests for HPV 31, 33, 35, 39, 45, 51, 52, 56, 58, 59, 66 and 68. The testing for HPV 16 and 18 genotypes has also been performed. A positive result indicates detection of nucleic acid sequences from one or more subtypes, whereas a negative result indicates such sequences were not detected. All professional services are performed by [facility] ([address] [place], [place] [id number]; ; CLIA #[id number]). The PAP Test is a screening procedure with the inherent possibility of both false negative and false positive results. Results should be interpreted in the context of historic and current clinical findings. Reliability of the PAP Test is enhanced by performing the test on a regular repetitive basis. CONTINUED ON NEXT PAGE ----- ------- Name: Polina Elena Age/Sex: 44/F : 1980 Unit#: [id number] Attend Dr: Leonor Mckee MD Re04/24/25 Status: DEP REF Location: .LN Disch: ----- ------- SPEC : [id number] RECD: 04/25/25 STATUS: HODA SEQUEIRA NUM: [id number] DIANE: 04/24/25 [facility] [address]: Leonor Mckee MD ENTERED: 04/25/25-1323 SP TYPE: Pap Rosey [facility] DR: ORDERED: Pap Smear ----- ------- Signed (signature on file) XAVIER Navarro (ASCP) 04/30/25 1447 ----- ------- END OF REPORT us Leonor Mckee MD LAB CYTOLOGY ORDERABLES Final Result [facility] [address] [place] [phone] * Cologuard?? colon cancer screening (04/11/2025 8:50 AM EDT) Pathologist [facility] Cologuard Result Negative Negative 04/17/20 8:30 PM EDT [facility] (CLIA #:[id number]) Comment: The Cologuard (TM) test was performed [...] cancer. Following a negative Cologuard result, the [place] [employer] and U.S. Multi-Society Task Force screening guidelines recommend a Cologuard re-screening interval of 3 years. References: [place] [employer] Guideline for Colorectal Cancer Screening: https://www.cancer.org/cancer/veffq-ditzbx-isrbsh/sonvyguqo-pqrpweqbg-excssrg/ac s-rec ommendations.html.; Fly DK, Malvin CR, Paulina FraserK, Colorectal Cancer Screening: Recommendations for Physicians and Patients from the U.S. Multi-Society Task Force on Colorectal Cancer Screening , Am J Gastroenterology 2017; 112:0898-8254. TEST DESCRIPTION: Composite algorithmic analysis of stool [...] (Amarjit Hughes al, N Engl J Med 2014;370(14):2997-7810.) Cologuard may produce a false negative or false positive result (no colorectal cancer or precancerous polyp present at colonoscopy follow up). A negative Cologuard test result does not guarantee the absence of CRC or advanced adenoma (pre-cancer). The current Cologuard screening interval is every 3 years. ([place] [employer] and U.S. Multi-Society Task Force). Cologuard performance data in a 10,000 patient pivotal study using colonoscopy as the reference method can be accessed at the following location: www.[employer]/results. Additional description of the Cologuard test process, warnings and precautions can be found at www.[employer]. Stool specimen (specimen) 04/11/2025 8:50 AM EDT 04/13/2025 9:11 AM EDT Leonor Mckee MD LAB MOLECULAR DIAGNOSTICS ORD ERABLES Final Result [facility] (CLIA #:[id number]) [address] 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
== END 2025-06-05 13:40 | disposition home or self-care (01) ==
LOC: HO.HMGCX 13:39
PROVIDERS: PCP Family Medicine; Visit Provider Family Medicine
DX: Z31.69 Encounter for other general counseling and advice on procreation (principal); D25.9 Leiomyoma of uterus, unspecified
CPT/HCPCS: 76830; 76856

== ENCOUNTER → 2025-06-05 13:58 | Outpatient (BNV) | payer MEDICAID, SELFPAY | PROVIDERS: PCP Family Medicine; Visit Provider Radiology Diagnostic Radiology | DX: D25.9 Leiomyoma of uterus, unspecified (principal); N97.9 Female infertility, unspecified | CPT/HCPCS: 76830; 76856 ==

== ENCOUNTER 2025-07-04 07:53 | Outpatient (REF) | payer MEDICAID, SELFPAY | END 2025-07-04 07:54 | disposition home or self-care (01) | LOC: HO.LAB 07:53 | PROVIDERS: Visit Provider Nurse Practitioner Family | DX: R31.29 Other microscopic hematuria (principal); R35.1 Nocturia; R35.0 Frequency of micturition; R33.9 Retention of urine, unspecified | CPT/HCPCS: 51798; 81003; 88112; 99202 ==

== ENCOUNTER 2025-07-04 07:53 | Outpatient (AMB) | payer OTHER, SELFPAY ==
--- NOTE | 2025-07-04 07:57 | A.OFFVIS_ITS ---
Intake Visit Reasons: Increased Urinary frequency/UA/PVR Intake Note: Patient is present for increased urinary frequency/ua/pvr Urology Medication:none Antibiotic Allergy:none Blood Thinner:none TODAY'S PVR:245ML'S Plate Preparer Required: No Plate Preparer Services: Plate Preparer Present Plate Preparer Name: Areli [id number] Allergies No Known Allergies Allergy (Verified 07/04/25 08:43) Medication List - Last Reconciled 07/04/25 by ANDREW Valdez No Known Home Meds HPI Comments Details: Polina is a Uzbek-speaking 44-year-old female patient of Dr. Mckee. She presents to the office today as a new patient for urinary frequency. In discussion with the patient today she reports over the last 1-2 months she has been experiencing increased episodes of urinary frequency at which time she followed up with her PCP and a pelvic ultrasound was ordered and she was noted t o have fibroids and is due to follow-up with obgyn hospitalist physician in the next couple of weeks. In office urinalysis results reviewed with the patient today trace microscopic hematuria. She denies any previous history of nicotine dependence and or workplace chemical exposure. PVR today 245ml's. We did discussed potential causes of urinary frequency, nocturia, as well as incomplete bladder emptying. We did discussed further treatment options and risks and benefits of these treatment options. She denies incontinence, hematuria, dysuria, foul smelling urine, changes to urinary stream, flank pain, fever, and or chills. We discussed obtaining retroperitoneal ultrasound for further assessment evaluation. We also discussed lifestyle modifications to assist with incomplete bladder emptying. All questions were answered. She otherwise offers no other issues or concerns at this time. Review of Systems Const All systems reviewed & are unremarkable except as noted in HPI and below Physical Exam Const General: cooperative, healthy appearing, comfortable, no acute distress, well developed, alert and awake Nutritional Appearance: overweight Orientation/consciousness: patient oriented x3 Limitations: language barrier HEENT Head: Yes normal to inspection, Yes normocephalic and Yes atraumatic Ears: hearing grossly normal bilaterally Eyes General: appearance normal, both eyes and all related structures Neck Neck: Yes normal visual inspection and Yes trachea midline Chest Chest palpation & inspection: normal inspection of the chest Resp Effort & Inspection: normal respiratory effort and able to speak in complete sentences Cardio Rate: regular rate GI Inspection: Yes normal to inspection General: Yes no CVA tenderness Back/Spine/Pelvis Back: no CVA tenderness Skin General skin exam: no rashes or lesions noted Neuro General: patient oriented x3 Extrem General: Yes normal to inspection Psych Appearance: grossly normal and well kempt Mental Status: mental status grossly normal Speech and movement: Normal speech and movement present and Clear speech present Affect: normal affect Attitude: cooperative Thought process: Normal thought process present Thought content: Normal thought content present Insight: Fair insight present (Psych) Judgement: Fair judgement present (Psych) Office Procedures Post Void Residual Post Residual Void Post Void Residual (PVR): 245 [id number] Void Residual by ultrasound Results AMB Urinalysis, Automated UA Leukoctes 0 Joe/uL Last Edit by ZAY Gay on 07/04/25 08:58 UA Nitrite Negative Last Edit by ZAY Gay on 07/04/25 08:58 UA Urobilinogen 0.2 mg/dL Last Edit by ZAY Gay on 07/04/25 08:5 8 UA Protein 0 mg/dL Last Edit by ZAY Gay on 07/04/25 08:58 UA pH 6.0 Last Edit by ZAY Gay on 07/04/25 08:58 UA Blood 10 Troy/uL Last Edit by ZAY Gay on 07/04/25 08:58 UA Specific [place] 1.010 Last Edit by ZAY Gay on 07/04/25 08: 58 UA Ketone Negative Last Edit by ZAY Gay on 07/04/25 08:58 UA Bilirubin 0 mg/dL Last Edit by ZAY Gay on 07/04/25 08:58 UA Glucose 0 mg/dL Last Edit by ZAY Gay on 07/04/25 08:58 Results Reviewed Results Reviewed: Laboratory Last Values Urine pH (Auto) 6.0 07/04/25 08:58 Specific [place] (Auto) 1.010 07/04/25 08:58 Urine Protein (Auto) 0 mg/dL 07/04/25 08:58 Glucose (UA)(Auto) 0 mg/dL 07/04/25 08:58 Urine Ketones (Auto) Negative 07/04/25 08:58 Urine Blood (Auto) 10 [place]/uL 07/04/25 08:58 Urine Nitrite (Auto) Negative 07/04/25 08:58 Urine Bilirubin (Auto) 0 mg/dL 07/04/25 08:58 Urine Urobilinogen (Auto) 0.2 mg/dL 07/04/25 08:58 Leukocyte Esterase (Auto) 0 Joe/uL 07/04/25 08:58 Assessment & Plan Assessment & Plan (1) Nocturia: Code(s): R35.1 - Nocturia Category: Medical (2) Increased frequency of urination: Code(s): R35.0 - Frequency of micturition Category: Medical (3) Incomplete bladder emptying: Code(s): R33.9 - Retention of urine, unspecified Category: Medical Plan In office urinalysis results with the patient today; as noted above; will send for urine cytology. PVR 245 mL. We did discussed importance of double voiding to assist with incomplete bladder emptying. We did discussed potential causes of urinary frequency and nocturia; we discussed further treatment options and risks and benefits of these treatment options. All questions were answered. Will obtain retroperitoneal ultrasound for further assessment evaluation. Will refer to pelvic floor therapy for further assessment evaluation. We discussed importance of following up with obgyn hospitalist physician as planned. Start terazosin 1 mg at bedtime as discussed. Follow-up in 1-3 months with imaging and PVR; or sooner with any issues, concerns, and or questions. Orders: Orders US retroperitoneal comp Today R33.9 - Retention of urine, unspecified, R35.0 - Frequency of micturition, R35.1 - Nocturia PT Evaluation and Treatment Today R33.9 - Retention of urine, unspecified, R35.0 - Frequency of micturition, R35.1 - Nocturia Urine Cytology Today R31.29 - Other microscopic hematuria AMB Urinalysis Automated Today Z13.9 - Encounter for screening, unspecified Medications: New terazosin 1 mg PO BEDTIME 30 caps 3RF 30 days Patient Instructions: The patient had an opportunity to ask questions regarding the treatment plan. All questions were answered. Physical exam, labs, and imaging were discussed and reviewed in detail. As well as risks, benefits, and discussion of treatment choices. No major barriers to understanding were identified. The patient expressed understanding and agreement with the above treatment plan. The patient was made aware they should contact our office by phone for worsening of their current condition, the appearance of new symptoms, or with any questions or concerns. Compliance is encouraged with any medications and follow up testing that is ordered. It is a privilege to be allowed the opportunity to participate in? your urological care.? Again, if you have any questions or concerns If you have any questions or concerns please do not hesitate to contact me. The office is [phone]. This note is constructed using voice recognition software. While every effort h as been made to ensure accuracy forestry patrolman errors may have been included. Yours sincerely, ANDREW Valdez Coding Level of Care Code New Pt Level 4 (88029) Diagnoses Nocturia R35.1 Increased frequency of urination R35.0 Incomplete bladder emptying R33.9 CPT Codes Post Residual Void - PVR CPT Code: 74533-Acjz Void Residual by ultrasound ([id number])
--- OUTSIDE RECORDS SUMMARY | 2025-07-04 07:58 | XMS_ITS | Clinical Summary ---
Author Organization [employer] Address [address] [facility] [address] [place] [address] Care Team Providers Care Brim Presser Name Role Phone Leonor Mckee MD Primary Care Provider [phone] Allergies No known active allergies Medications multivitamin () 27-0.8 MG tablet Take 1 tablet by mouth Once per day. 120 tablet 3 03/29/2025 Active Active Problems Problem Noted Date Diagnosed Date Cyst of right ovary 06/07/2025 Cervical cancer screening 04/24/2025 Assessment & Plan (04/24/2025 9:20 AM EDT): 44 y.o. here for cervical cancer screening. Will continue monitoring following ASCCP guidelines. Infertility counseling 03/29/2025 Increased urinary frequency 03/29/2025 Encounters Date Type Department Care Team Description 05/10/2025 Results Follow-Up [facility] [address] [place] [address] Leonor Mckee MD Pap Smear, HPV High Risk with Reflex to Subtypes 04/24/2025 9:00 AM EDT Procedure Visit [facility] [address] [place] [address] Leonor Mckee MD Cervical cancer screening (Primary Dx) 04/24/2025 Orders Only [facility] [address] [place] [address] Leonor Mckee MD 04/24/2025 Travel 04/18/2025 Results Follow-Up [facility] [address] [place] [address] Leonor Mckee MD Cologuard colon cancer screening, US Pelvis Transvaginal 04/06/2025 Telephone [facility] [address] [place], [place] [phone] Leonor Mckee MD 04/04/2025 Population Health Risk Score [facility] Department [address] [place] [phone] Provider, Population Health Generic from Last 3 Months Immunizations Immunization Administration [...] - 19+ 3-dose series) 10/01/1998 COVID-19 Vaccine (2024-2 6 season) 2025 Mammogram 08/03/2025 08/03/2024, 08/03/2024 Influenza [...] PM EST Narrative 06/05/2025 2:57 PM EST [facility] Primary Care [address] [place] [address] Ultrasound Report Signed Patient: Jerrod AugsutPolina Moore MR#: [id number] : 1980 Acct:[id number] Age/Sex: 44 / F ADM Date: 06/05/25 Loc: HO.HMGCX Attending Dr: Leonor Mckee MD Ordering Physician: Leonor Mckee MD Date of Service: 06/05/25 Procedure(s): US pelvic and transvaginal Accession Number(s): [id number] cc: Leonor Mckee MD Reason for Exam: [...] by: Benji Ching MD 06/05/2025 02:53 PM [facility] Dictated By: Benji Ching MD Signed By: <Electronically signed by Benji Ching MD in OV> 06/05/25 1453 DD/ 1405 TD/TT: 06/05/25 1436 Journeyman Press Operator: Procedure Note Donotuseinterpreter, Image - 06/05/2025 [facility] Adult Primary Care [address] [place] [address] [place] [address] Ultrasound Report Signed Patient: Polina Elena MR#: [id number] : 1980Acct:[id number] Age/Sex: 44 / FADM Date: 06/05/25 Loc: HO.HMGCX Attending Dr: Leonor Mckee MD Ordering Physician: Leonor Mckee MD Date of Service: 06/05/25 Procedure(s): US pelvic and transvaginal Accession Number(s): [id number] cc: Leonor Mckee MD Reason for Exam: [...] by: Benji Ching MD 06/05/2025 02:53 PM [facility] Dictated By: Benji Ching MD Signed By: <Electronically signed by Benji Ching MD in OV> 06/05/25 6228 DD/ 1405 TD/TT: 06/05/25 1436 Journeyman Press Operator: us Leonor Mckee MD IMG US PROCEDURES Final Resul t * Urinalysis, Complete, with Reflex to Culture (04/24/2025 10:30 AM EDT) Color Urine Yellow [facility] Appearance Urine Clear [facility] PH 5.5 5.0 - 9.0 [facility] Glucose Urine UA Negative Negative mg/dL [facility] Urine Blood Negative Negative [facility] Specific [place] - Urine 1.025 1.005 - 1.025 [facility] Urine Protein Negative Neg-Trace mg/dL [facility] Urine Ketones Negative Negative mg/dL [facility] Nitrite Urine Negative Negative [facility] Leukocyte Esterase Urine Negative Negative [facility] RBC Urine 0-2 0 - 2 /HPF [facility] Urine WBC 0-5 0 - 5 /HPF [facility] Urine Squamous Epithelial Cell 0-2 0 - 2 /HPF [facility] Urine Bacteria None Seen None Seen [facility] Hyaline Casts, Urine 0-2 0 - 2 /LPF [facility] Urine 04/24/2025 10:3 0 AM EDT 04/24/2025 2:17 PM EDT Narrative [facility] - 04/24/2025 2:30 PM EDT [id number], Clean Catch us Leonor Mckee MD LAB URINE ORDERABLES Final Re sult [facility] [address] [place] [phone] * Hepatitis C Antibody with Reflex to HCV, RNA, Quantitative, Real-Time PCR (04/24/2025 10:25 AM EDT) Hepatitis C Antibody Nonreactive Nonreactive [facility] Comment:Antibodies to HCV no t detected; does not exclude early acuteHCV infection. Blood Venous blood specimen / Unknown 04/24/2025 10:25 AM EDT 04/24/2025 2:29 PM EDT us Leonor Mckee MD LAB BLOOD ORDERABLES Final Re sult Performing Organization Address [facility]/ZIP Co de Phone Number [facility] [address] [place] [phone] * HIV-1/2 Antigen and Antibodies, Fourth Generation, with Reflexes (04/24/2025 10:25 AM EDT) HIV AB/AG Nonreactive Nonreactive [facility] Comment:HIV-1 p24 Ag and/or HIV-1/HIV-2 Ab not detected.A test result that is nonreactive does not exclude thepossibility of exposure to or infection with HIV-1 and/orHIV-2. Nonreactive results in this assay for individualswith prior exposure to HIV-1 and/or HIV-2 may be due toantigen and antibody levels that are below the limit ofdetection of this assay.The beneSol HIV Ag/Ab Combo assay result andsupplemental assay results should be interpreted inconjunction with the patient's clinical presentation,history and other laboratory results. If the results areinconsistent with clinical evidence, additional testing issuggested to confirm the result. Blood Venous blood specimen / Unknown 04/24/2025 10:25 AM EDT 04/24/2025 2:29 PM EDT Leonor Mckee MD LAB BLOOD ORDERABLES Final Re sult Performing Organization Address [facility]/ZIP Co de Phone Number [facility] [address] [place] [phone] * Vitamin D, 25-Hydroxy, Total, Immunoassay (04/24/2025 10:23 AM EDT) Vitamin D 25-OH Total 36.6 >30 ng/mL [facility] Comment: Health Based Reference Values*< 20 ng/mL Vtxhdnwut45-92 ng/mL Insufficient> 30 ng/mL Sufficient*Desirae DOMINGUEZ. N [...] ORDERABLES Final Re sult Performing Organization Address [facility] Co de Phone Number [facility] [address] [place] [address] [phone] * (ABNORMAL) TSH W/Reflex to FT4 (04/24/2025 10:23 AM EDT) TSH reflex Free T4 5.02(H) 0.32 - 4.0 uIU/mL [facility] Blood Venous blood specimen / Unknown 04/24/2025 10:23 AM EDT 04/24/2025 2:29 PM EDT Leonor Mckee MD LAB BLOOD ORDERABLES Final Re sult Performing Organization Address [facility] Co de Phone Number [facility] [address] [place] [phone] * Measles, Mumps, and Rubella (MMR) Antibodies??(IgG) Panel, Immune Status (04/24/2025 10:23 AM EDT) Mumps Virus IgG Antibody >300.00 AU/mL [facility] Comment:AU/mL Interpretation ------- <9.00 Not consistent with immunity9.00-10.99 Equivocal>10.99 Consistent with immunityThe presence of mumps IgG antibody suggests immunizationor past or current infection with mumps virus. Rubella IgG Antibody 12.90 Index [facility] Comment:Index Interpretation ----- <0.90 Not consistent with immunity 0.90-0.99 Equivocal > or = 1.00 Consistent with immunityThe presence of rubella IgG antibody suggestsimmunization or past or current infection withrubella virus.THIS TEST WAS PERFORMED AT:[employer] [facility] [employer] [place] [phone] WISE MD Rubeola IgG (Measles) >300.00 AU/mL [facility] Comment:AU/mL Interpretation ----- <13.50 Not consistent with tzdxakmb52.50-16.49 Equivocal>16.49 Consistent with immunityThe presence of measles IgG suggests immunization orpast or current infection with measles virus.For additional information, please refer tohttp://education.TSCA/faq/COK612(This link is being provided for informational/educational purposes only.) Blood 04/24/2025 10:2 3 AM EDT 04/24/2025 2:29 PM EDT us Leonor Mckee MD LAB BLOOD ORDERABLES Final Re sult [facility] [address] [place] [phone] [phone] * (ABNORMAL) CBC auto differential (04/24/2025 10:23 AM EDT) White Blood Count 8.0 4.8 - 10.8 X10*3/uL [facility] Red Blood Count 4.43 4.20 - 5.50 X10*6/uL [facility] Hemoglobin 13.3 12.0 - 16.0 g/dl [facility] Hematocrit 40.8 37.0 - 47.0 % [facility] Mean Corpuscular Volume 92.1 80.0 - 98.0 fL [facility] Mean Corpuscular Hemoglobin 30.0 27.0 - 33.0 pg [facility] Mean Corpuscular HGB Conc 32.6 31.0 - 35.0 g/dl [facility] Red Cell Distribution Width 12.9 11.0 - 16.0 % [facility] Platelet Count 252 160 - 400 X10*3/uL [facility] Mean Platelet Volume 11.6 9.4 - 12.3 fL [facility] Neutrophils Percent Auto 62.3 45 - 73 % [facility] Imm Gran Pct Auto 0.5(H) 0.0 - 0.4 % [facility] Lymphocytes Percent Auto 26.1 20 - 40 % [facility] Monocytes Percent Auto 8.5 2 - 11 % [facility] Eosinophils Percent Auto 2.1 0 - 4 % [facility] Basophils Percent Auto 0.5 0 - 2 % [facility] NRBC Pct Auto 0.0 0.0 - 0.2 /100WBC [facility] Neutrophils Absolute Auto 5.0 2.0 - 8.3 x10*3/uL [facility] Imm Gran Abs Auto 0.04(H) 0.00 - 0.03 X10*3/uL [facility] Lymphocytes Absolute Auto 2.1 1.2 - 4.9 X10*3/uL [facility] Monocytes Absolute Auto 0.7 0.1 - 1.2 X10*3/uL [facility] Eosinophils Absolute Auto 0.2 0.0 - 0.4 X10*3/uL [facility] Basophils Absolute Auto 0.0 0.0 - 0.2 X10*3/uL [facility] NRBC Abs Auto 0.000 0.0 - 0.012 X10*3/uL [facility] Blood Venous blood specimen / Unknown 04/24/2025 10:23 AM EDT 04/24/2025 2:29 PM EDT Leonor Mckee MD LAB BLOOD ORDERABLES Final Re sult Performing Organization Address [facility]/ZIP Co de Phone Number [facility] [address] [place] [phone] * T4, Free (04/24/2025 10:23 AM EDT) Free T4 (Free Thyroxine) 0.91 0.71 - 1.85 ng/dL [facility] 04/24/2025 10:2 3 AM EDT 04/24/2025 2:29 PM EDT Leonor Mckee MD LAB BLOOD ORDERABLES Final Re sult Performing Organization Address [facility] Co de Phone Number [facility] [address] [place] [phone] * (ABNORMAL) Lipid Panel, Standard (04/24/2025 10:23 AM EDT) Triglycerides 210(H) <150 mg/dL [facility] Comment:Desirable Triglyceri de: less than 150 mg/dLBorderline High Triglyceride 150-199 mg/dLHigh Triglyceride: 200-499 mg/dLVery High Triglyceride: greater than or equal to 5OO mg/dL Cholesterol 194 <200 mg/dL [facility] Comment:Desirable Cholestero l: less than 200 mg/dLBorderline High Cholesterol: 200-239 mg/dLHigh Cholesterol: greater than 239 mg/dL LDL Cholesterol Calculated 122(H) <100 mg/dL [facility] Comment:Desirable LDL: less than 100 mg/dLNear Optimal/Above Optimal LDL: 110- 129 mg/dLBorderline High LDL: 130-159 mg/dLHigh LDL: 160-189 mg/dLVery High LDL: greater than or equal to 190 mg/dL HDL Cholesterol 30(L) >40 mg/dL [facility] Comment:Desirable HDL: great er than 40 mg/dL Note: This HDL assay may give artificially low results in patients with liver disease. Blood Venous blood specimen / Unknown 04/24/2025 10:23 AM EDT 04/24/2025 2:29 PM EDT us Leonor Mckee MD LAB BLOOD ORDERABLES Final Re sult [facility] [address] [place] [address] [phone] * (ABNORMAL) Comprehensive Metabolic Panel (04/24/2025 10:23 AM EDT) Sodium 139 135 - 145 mmol/L [facility] Potassium 3.7 3.3 - 5.1 mmol/L [facility] Chloride 107 96 - 108 mmol/L [facility] Carbon Dioxide 28 22 - 29 mmol/L [facility] Anion Gap 8(L) 12 - 20 [facility] Urea Nitrogen (BUN) 12 9 - 16 mg/dL [facility] Creatinine, Serum 0.61 0.5 - 1.4 mg/dL [facility] Estimated Glomerular Filt Rate >60 [facility] Comment:Chronic Kidney Disea se: Estimated GFR < 60 mL/min/1.16k8Oyqcqg Kidney Disease: Estimated GFR < 15 mL/min/1.73m2 Glucose 89 60 - 115 mg/dL [facility] Calcium 8.9 8.4 - 10.2 mg/dL [facility] Bilirubin, Total 0.5 0.0 - 1.0 mg/dL [facility] Aspartate Amino Transferase 22 5 - 31 U/L [facility] Alanine Aminotransferase 19 0 - 31 U/L [facility] Total Protein 7.4 6.5 - 8.0 g/dL [facility] Albumin Level 4.2 3.5 - 5.0 g/dL [facility] Alkaline Phosphatase 65 39 - 117 U/L [facility] Blood Venous blood specimen / Unknown 04/24/2025 10:23 AM EDT 04/24/2025 2:29 PM EDT Leonor Mckee MD LAB BLOOD ORDERABLES Final Re sult Performing Organization Address [facility] Co de Phone Number [facility] [address] [place] [phone] * Varicella Zoster Antibody, IgG (04/24/2025 10:19 AM EDT) Varicella IgG Antibody 3.61 S/CO [facility] Comment:Signal to Cut-off S/ [...] Antibody Immunity Screen, ACIF.THIS TEST WAS PERFORMED AT:[facility] [address] [phone] WISE MD Blood Venous blood specimen / Unknown 04/24/2025 10:19 AM EDT 04/24/2025 2:29 PM EDT Leonor Mckee MD LAB BLOOD ORDERABLES Final Re sult Performing Organization Address [facility] Co de Phone Number [facility] [address] [place] [phone] * HPV High Risk with Reflex to Subtypes (04/24/2025 9:10 AM EDT) Pathologist [facility] HPV High Risk Negative Negative [facility] HPV Genotype 16 Negative Negative [facility] HPV Genotype 18 Negative Negative [facility] Comment:HPV testing performe d at [facility] (CLIA#[id number]), [address] [place] [phone].Testing for HPV was performed using the Sanjeev [...] 9:10 AM EDT 04/25/2025 11:28 AM EDT us Leonor Mckee MD LAB BLOOD ORDERABLES Final Re sult [facility] [address] [place] [phone] * Pap Smear (04/24/2025 9:10 AM EDT) Swab Cervical swab / Unknown 04/24/2025 9:10 AM EDT 04/25/2025 11:28 AM EDT [facility] - 04/30/2025 2:47 PM EDT ----- ------- Name: Polina Elena Age/Sex: 44/F : 1980 Unit#: [id number] Attend Dr: Leonor Mckee MD Re04/24/25 Status: DEP REF Location: HO.LNP Disch: ----- ------- SPEC : [id number] RECD: 04/25/25 STATUS: HODA SEQUEIRA NUM: [id number] DIANE: 04/24/25 [facility] DR: Leonor Mckee MD ENTERED: 04/25/25 SP TYPE: Pap Smr OT DR: ORDERED: Pap Smear Interpretation Satisfactory for evaluation. [...] and HPV testing will be performed at [facility] (CLIA #[id number]), [address] [place] [address]. Testing for HPV was performed using the [...] detected. All professional services are performed by [facility] ([address] [place] [id number]; ; CLIA #[id number]). The PAP Test is a screening procedure with the inherent possibility of both false negative and false positive results. Results should be interpreted in the context of historic and current clinical findings. Reliability of the PAP Test is enhanced by performing the test on a regular repetitive basis. CONTINUED ON NEXT PAGE ----- ------- Name: Jerrod Polina Koch Age/Sex: 44/F : 1980 Unit#: [id number] Attend Dr: Leonor Mckee MD Re04/24/25 Status: DEP REF Location: HO.LNP Disch: ----- ------- SPEC : [id number] RECD: 04/25/25-1127 STATUS: LISAChloe SEQUEIRA NUM: [id number] DIANE: 04/24/25 [facility] DR: Leonor Mckee MD ENTERED: 04/25/25-1323 SP TYPE: Shankar BAXTER DR: ORDERED: Pap Smear ----- ------- Signed (signature on file) XAVIER Navarro ([facility]) 04/30/25 5317 ----- ------- END OF REPORT us Leonor Mckee MD LAB CYTOLOGY ORDERABLES Final Result [facility] [address] [place] [phone] * Cologuard?? colon cancer screening (04/11/2025 8:50 AM EDT) Cologuard Result Negative Negative 04/17/20 8:30 PM EDT [employer] (CLIA #:[id number]) Comment: The Cologuard (TM) test was performed [...] cancer. Following a negative Cologuard result, the [place] Cancer Society and U.S. Multi-Society Task Force screening guidelines recommend a Cologuard re-screening interval of 3 years. References: [place] [employer] Guideline for Colorectal Cancer Screening: https://www.cancer.org/cancer/gkhnz-nxncpp-ihdwue/cxddctcur-fxuyyzsgf-whkiaad/ac s-rec ommendations.html.; Fly DK, Malvin CR, Paulina FraserK, Colorectal Cancer Screening: Recommendations for Physicians and Patients from the U.S. Multi-Society Task Force on Colorectal Cancer Screening , Am J Gastroenterology 2017; 112:1734-8161. TEST DESCRIPTION: Composite algorithmic analysis of stool [...] (Amarjit Hughes al, N Engl J Med 2014;370(14):1553-9438.) Cologuard may produce a false negative or false positive result (no colorectal cancer or precancerous polyp present at colonoscopy follow up). A negative Cologuard test result does not guarantee the absence of CRC or advanced adenoma (pre-cancer). The current Cologuard screening interval is every 3 years. ([place] [employer] Society and U.S. Multi-Society Task Force). Cologuard performance data in a 10,000 patient pivotal study using colonoscopy as the reference method can be accessed at the following location: www.[employer]/results. Additional description of the Cologuard test process, warnings and precautions can be found at www.[employer].com. Stool specimen (specimen) 04/11/2025 8:50 AM EDT 04/13/2025 9:11 AM EDT Leonor Mckee MD LAB MOLECULAR DIAGNOSTICS ORD ERABLES Final Result [employer] (CLIA #:[id number]) [address] [place] [address], from Last [address] [place] [address] C3 Care Teams Brim Presser Relationship Specialty Start Date End Date Leonor Mckee MD [address] [place] [phone] PCP - General Family Medicine 03/29/25
--- OUTSIDE RECORDS SUMMARY | 2025-07-04 07:58 | XMS_ITS | Clinical Summary ---
Author Organization [facility] Address [address] [place] [address] Phone Care Team Providers Care Auto Service Instructor Name Role Phone Physician, No Pcp Primary [...] Screening 07/05/2022 Depression Screening 08/02/2024 COVID-19 Vaccine (1 - 2024-2 6 season) 2025 Influenza Vaccine (#1) 2025 Breast [...] Procedure Name Priority Date/Time Associated Diagnosis Comments [facility] Routine 01/26/2024 3:38 PM EDT Encounter for screening mammogram for malignant neoplasm of breast from Last 3 Months or Most Recently Relevant to Health Maintenance Results * [facility] SCREENING DIGITAL (01/26/2024 3:38 PM EDT) Anatomical Region Laterality Modality Mammography 01/26/2024 9:48 AM EDT Narrative 01/26/2024 3:38 PM EDT [facility] Diagnostic Imaging Department [address] [place] [address] Patient: POLINA CASANOVA /Age/Sex: 1980 - 43 - F Unit#: [id number] [facility] Mn[facility]Ordering Site: [facility]ID/[facility] Ordering Physician: MATTIE ZELAYA PA-C [facility] Screening Digital - 01/26/24 - 1011 Report Status:Signed EXAM: [facility] Screening Digital EXAM DATE AND TIME: 01/26/2024 10:12 AM HISTORY: Screening. COMPARISON: 11/02/22, 10/30/21 TECHNIQUE: Bilateral digital breast tomosynthesis was performed in the CC and MLO projections. Computer aided detection with WiFast 3D 3.1 was employed. TISSUE DENSITY: c. [...] Physician: NURYS PINTO MD Electronically Signed by: UNRYS PINTO MD Dic Date/Time: 01/26/24 1536 Sign date/Time: 01/26/24 1538 Procedure Note Nurys Pinto MD - 05/17/2024 [facility] Diagnostic Imaging Department [address] [place] [address] Patient: POLINA CASANOVA D.O.B./Age/Sex: 1980 - 43- F Unit#: [id number] Location/Status: SPDIMAM/REG CLI Mnemonic/Ordering Site: [facility] Ordering Physician: MATTIE ZELAYA PA-C [facility] Screening Digital - 01/26/24 - 1011 Report Status:Signed EXAM: [facility] Screening Digital EXAM DATE AND TIME: 01/26/2024 10:12 AM HISTORY: Screening. COMPARISON: 11/02/22, 10/30/21 TECHNIQUE: Bilateral digital breast tomosynthesis was performed in the CCand MLO projections. Computer aided detection with WiFast 3D 3.1was employed. TISSUE DENSITY: c. The [...] Most Recently Relevant to Health Maintenance Insurance [facility] Care Teams Auto Service Instructor Relationship Specialty Start Date End Date Physician, No Pcp PCP - General 08/03/24
== END 2025-07-04 08:54 | disposition home or self-care (01) ==
LOC: HO.HUSH 07:53
PROVIDERS: Visit Provider Nurse Practitioner Family
DX: R35.1 Nocturia (principal); R35.0 Frequency of micturition; R33.9 Retention of urine, unspecified; Z13.9 Encounter for screening, unspecified
CPT/HCPCS: 99204

== ENCOUNTER 2025-07-18 10:56 | Outpatient (REF) | payer MEDICAID, SELFPAY ==
--- NOTE | ~2025-07-18 | US_ITS ---
EXAMINATION: US KIDNEY BILATERAL HISTORY: R35.1 - Nocturia TECHNIQUE: Real-time grayscale ultrasound imaging of the kidneys was performed and images were reviewed. COMPARISON: There are no prior studies available for comparison. FINDINGS: Right kidney: The right kidney measures 10.9 x 4.9 x 5.6 cm. Renal parenchymal echotexture and thickness are normal. There are no masses. There is no hydronephrosis or renal calculi. Left Kidney: The left kidney measures 10.4 x 6.3 x 4.9 cm. Renal parenchymal echotexture and thickness are normal. There are no masses. There is no hydronephrosis or renal calculi. The urinary bladder is unremarkable. Before voiding, the urinary bladder measured 10.4 x 3.6 x 9.2 cm, for an estimated volume of 179 mL. After voiding, the urinary bladder measured 4.1 x 1.3 x 7.3 cm, for an estimated volume of 21 mL. US/US renal BI IMPRESSION: Unremarkable renal ultrasound. Post void bladder residual 21 mL Electronically signed by: Rigoberto Chinchilla MD 07/18/2025 12:13 PM AMAYA
--- NOTE | ~2025-07-18 | US_ITS ---
EXAMINATION: US PELVIS CLINICAL INFORMATION: Follow-up right ovarian complex cyst COMPARISON: 06/05/2025 TECHNIQUE: Ultrasound of the pelvis is performed using both transabdominal and transvaginal transducers along with Doppler. Transvaginal imaging is performed due to inadequate visualization transabdominally. FINDINGS: Uterus: The uterus is anteverted and measures 8.9 x 4.2 x 4.8 cm. The uterus echotexture is heterogeneous in the imaged stripe is obscured. There is an area in the cul-de-sac region that is heterogeneous and hypoechoic compared to the uterus measuring 3.1 x 2.8 x 3.7 cm a could represent a pedunculated leiomyoma. No blood flow is demonstrated on color Doppler. Again seen is complex fluid with an echogenic nodular wall within the cervix has decreased in size since the prior. It measures 2.5 x 1.1 x 2.0 cm. It previously measured 2.2 x 1.3 x 2.9 cm (CC by AP by transverse) There is a 2 x 6 mm mural nodule. Adnexa: Right ovary: Not demonstrated Left ovary measures 3.6 x 2.4 x 2.5 cm. There is a mature follicle measuring 19 mm US/US pelvic and transvaginal IMPRESSION: Heterogeneous lobulated uterus is most consistent with underlying adenomyosis and multiple fibroids. There is a complex cystic region within the cervix with an irregular wall measuring up to 5 mm thick as well as a 2 x 6 mm mural nodule. Lesion size has decreased since the prior. While this could represent a complex nabothian cyst, other etiologies such as endometrioma and malignancy are not ruled out. Follow-up MRI female pelvis without and with IV contrast. Nonvisualized right ovary. Electronically signed by: Mack Acosta MD 07/18/2025 12:31 PM EST
--- OUTSIDE RECORDS SUMMARY | 2025-07-18 14:17 | XMS_ITS | Clinical Summary ---
Author Organization [facility] Address [address] [place] [address] Phone Care Team Providers Care Mounting Machine Operator Name Role Phone Physician, No Pcp Primary [...] Procedure Name Priority Date/Time Associated Diagnosis Comments [facility] SCREENING DIGITAL Routine 01/26/2024 3:38 PM EDT Encounter for screening mammogram for malignant neoplasm of breast from Last 3 Months or Most Recently Relevant to Health Maintenance Results * [facility] SCREENING DIGITAL (01/26/2024 3:38 PM EDT) Anatomical Region Laterality Modality Mammography 01/26/2024 9:48 AM EDT Narrative 01/26/2024 3:38 PM EDT [facility] Diagnostic Imaging Department [address] [place] [address] Patient: POLINA CASANOVA /Age/Sex: 1980 - 43 - F Unit#: [id number] [facility]/Status: [facility]/REG CLI Mnemonic/Ordering Site: [facility] Ordering Physician: MATTIE ZELAYA PA-C [facility] Screening Digital - 01/26/24 - 1011 Report Status:Signed EXAM: [facility] Screening Digital EXAM DATE AND TIME: 01/26/2024 10:12 AM HISTORY: Screening. COMPARISON: 11/02/22, 10/30/21 TECHNIQUE: Bilateral digital breast tomosynthesis was performed in the CC and MLO projections. Computer aided detection with [employer] 3D 3.1 was employed. TISSUE DENSITY: c. [...] Procedure Note Nurys Pinto MD - 05/17/2024 [facility] Diagnostic Imaging Department [address] [place] [address] Patient: POLINA CASANOVA D.O.B./Age/Sex: 1980 - 43- F Unit#: [id number] Location/Status: [facility]/REG CLI Mnemonic/Ordering Site: [facility] Ordering Physician: MATTIE ZELAYA PA-C [facility] Screening Digital - 01/26/24 - 1011 Report Status:Signed EXAM: [facility] Screening Digital EXAM DATE AND TIME: 01/26/2024 10:12 AM HISTORY: Screening. COMPARISON: 11/02/22, 10/30/21 TECHNIQUE: Bilateral digital breast tomosynthesis was performed in the CCand MLO projections. Computer aided detection with [employer] 3D 3.1was employed. TISSUE DENSITY: c. The [...] Most Recently Relevant to Health Maintenance Insurance [facility] Care Teams Mounting Machine Operator Relationship Specialty Start Date End Date Physician, No Pcp PCP - General 08/03/24
--- OUTSIDE RECORDS SUMMARY | 2025-07-18 14:17 | XMS_ITS | Clinical Summary ---
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 Name Role Phone Leonor Mckee MD Primary Care Provider [phone] Allergies No known active allergies Medications multivitamin [...] Encounters Date Type Department Care Team Description 07/18/2025 Orders Only [facility] External Provider, [facility] 05/10/2025 Results Follow-Up [facility] [address] [place] [address] Leonor Mckee MD Pap Smear, HPV High Risk with Reflex to Subtypes 04/24/2025 9:00 AM EDT Procedure Visit [facility] [address] [place] [address] Leonor Mckee MD Cervical cancer screening (Primary Dx) 04/24/2025 Orders Only [facility] [address] [place] [address] Leonor Mckee MD 04/24/2025 Travel 04/18/2025 Results Follow-Up [facility] [address] [place] [address] Leonor Mckee MD [place] colon cancer screening, US Pelvis Transvaginal from Last 3 Months Immunizations Immunization Administration [...] Associated Diagnosis Comments US PELVIS TRANSVAGINAL Routine 11:24 AM EST Cyst of right ovary US RENAL COMPLETE Routine 07/18/2025 11: 10 AM EST US PELVIS TRANSVAGINAL Routine 2:05 PM EST Infertility counseling URINALYSIS, COMPLETE, [...] for colon cancer from Last 3 Months or Most Recently Relevant to Health Maintenance Results * US Pelvis Transvaginal (07/18/2025 11:24 AM EST) Only the most recent of2 resultswithin the time period is included. Anatomical Region Laterality Modality Pelvis Ultrasound 07/18/2025 11:2 4 AM EST Narrative 07/18/2025 12:34 PM EST [address] [address] Ultrasound Report Signed Patient: Polina Elena MR#: [id number] : 1980 Acct:[id number] Age/Sex: 44 / F ADM Date: 07/18/25 Loc: .US Attending Dr: Leonor Mckee MD Ordering Physician: Leonor Mckee MD Date of Service: 07/18/25 Procedure(s): US pelvic and transvaginal Accession Number(s): [id number] cc: Leonor Mckee MD Reason for Exam: Cyst of right ovary EXAMINATION: US PELVIS CLINICAL INFORMATION: Follow-up right ovarian complex cyst COMPARISON: 06/05/2025 TECHNIQUE: Ultrasound of the pelvis is performed using both transabdominal and transvaginal transducers along with Doppler. Transvaginal imaging is performed due to inadequate visualization transabdominally. FINDINGS: Uterus: The uterus is anteverted and measures 8.9 x 4.2 x 4.8 cm. The uterus echotexture is heterogeneous in the imaged stripe is obscured. There is an area in the cul-de-sac region that is heterogeneous and hypoechoic compared to the uterus measuring 3.1 x 2.8 x 3.7 cm a could represent a pedunculated leiomyoma. No blood flow is demonstrated on color Doppler. Again seen is complex fluid with an echogenic nodular wall within the cervix has decreased in size since the prior. It measures 2.5 x 1.1 x 2.0 cm. It previously measured 2.2 x 1.3 x 2.9 cm (CC by AP by transverse) There is a 2 x 6 mm mural nodule. Adnexa: Right ovary: Not demonstrated Left ovary measures 3.6 x 2.4 x 2.5 cm. There is a mature follicle measuring 19 mm US/US pelvic and transvaginal IMPRESSION: Heterogeneous lobulated uterus is most consistent with underlying adenomyosis and multiple fibroids. There is a complex cystic region within the cervix with an irregular wall measuring up to 5 mm thick as well as a 2 x 6 mm mural nodule. Lesion size has decreased since the prior. While this could represent a complex nabothian cyst, other etiologies such as endometrioma and malignancy are not ruled out. Follow-up MRI female pelvis without and with IV contrast. Nonvisualized right ovary. Electronically signed by: Mack Acosta MD 07/18/2025 12:31 PM [facility] Dictated By: Mack Acosta MD Signed By: <Electronically signed by Mack Acosta MD in OV> 07/18/25 1231 DD/ 1124 TD/TT: 07/18/25 1142 Competitive Shopper: Procedure Note Donotuseinterpreter, Image - 07/18/2025 [place] [address] Ultrasound Report Signed Patient: Polina Elena MR#: [id number] : 1980Acct:[id number] Age/Sex: 44 / FADM Date: 07/18/25 Loc: HO.US Attending Dr: Leonor Mckee MD Ordering Physician: Leonor Mckee MD Date of Service: 07/18/25 Procedure(s): US pelvic and transvaginal Accession Number(s): [id number] cc: Leonor Mckee MD Reason for Exam: Cyst of right ovary EXAMINATION: US PELVIS CLINICAL INFORMATION: Follow-up right ovarian complex cyst COMPARISON: 06/05/2025 TECHNIQUE: Ultrasound of the pelvis is performed using both transabdominal and transvaginal transducers along with Doppler. Transvaginal imaging is performed due to inadequate visualization transabdominally. FINDINGS: Uterus: The uterus is anteverted and measures 8.9 x 4.2 x 4.8 cm. The uterus echotexture is heterogeneous in the imaged stripe is obscured. There is an area in the cul-de-sac region that is heterogeneous and hypoechoic compared to the uterus measuring 3.1 x 2.8 x 3.7 cm a could represent a pedunculated leiomyoma. No blood flow is demonstrated on color Doppler. Again seen is complex fluid with an echogenic nodular wall within the cervix has decreased in size since the prior. It measures 2.5 x 1.1 x 2.0 cm. It previously measured 2.2 x 1.3 x 2.9 cm (CC by AP by transverse) There is a 2 x 6 mm mural nodule. Adnexa: Right ovary: Not demonstrated Left ovary measures 3.6 x 2.4 x 2.5 cm. There is a mature follicle measuring 19 mm US/US pelvic and transvaginal IMPRESSION: Heterogeneous lobulated uterus is most consistent with underlying adenomyosis and multiple fibroids. There is a complex cystic region within the cervix with an irregular wall measuring up to 5 mm thick as well as a 2 x 6 mm mural nodule. Lesion size has decreased since the prior. While this could represent a complex nabothian cyst, other etiologies such as endometrioma and malignancy are not ruled out. Follow-up MRI female pelvis without and with IV contrast. Nonvisualized right ovary. Electronically signed by: Mack Acosta MD 07/18/2025 12:31 PM EST Dictated By: Mack Acosta MD Signed By: <Electronically signed by Mack Acosta MD in OV> 07/18/25 1231 DD/ 1124 TD/TT: 07/18/25 1142 Competitive Shopper: us Leonor Mckee MD IMG US PROCEDURES Final Resul t * US Renal Complete (07/18/2025 11:10 AM EST) Anatomical Region Laterality Modality Kidney Ultrasound 07/18/2025 11:1 0 AM EST Narrative 07/18/2025 12:16 PM EST [place] [address] Ultrasound Report Signed Patient: Polina Elena MR#: [id number] : 1980 Acct:[id number] Age/Sex: 44 / F ADM Date: 07/18/25 Loc: HO.US Attending Dr: Leonor Mckee MD Ordering Physician: Dora Aviles Date of Service: 07/18/25 Procedure(s): US renal BI Accession Number(s): [id number] cc: Dora Aviles; Leonor Mckee MD Reason for Exam: R35.1 - Nocturia EXAMINATION: US KIDNEY BILATERAL HISTORY: R35.1 - Nocturia TECHNIQUE: Real-time grayscale ultrasound imaging of the kidneys was performed and images were reviewed. COMPARISON: There are no prior studies available for comparison. FINDINGS: Right kidney: The right kidney measures 10.9 x 4.9 x 5.6 cm. Renal parenchymal echotexture and thickness are normal. There are no masses. There is no hydronephrosis or renal calculi. Left Kidney: The left kidney measures 10.4 x 6.3 x 4.9 cm. Renal parenchymal echotexture and thickness are normal. There are no masses. There is no hydronephrosis or renal calculi. The urinary bladder is unremarkable. Before voiding, the urinary bladder measured 10.4 x 3.6 x 9.2 cm, for an estimated volume of 179 mL. After voiding, the urinary bladder measured 4.1 x 1.3 x 7.3 cm, for an estimated volume of 21 mL. US/US renal BI IMPRESSION: Unremarkable renal ultrasound. Post void bladder residual 21 mL Electronically signed by: Rigoberto Chinchilla MD 07/18/2025 12:13 PM [facility] Dictated By: Rigoberto Chinchilla MD Signed By: <Electronically signed by Rigoberto Chinchilla MD in OV> 07/18/25 1213 DD/ 1110 TD/TT: 07/18/25 1142 Competitive Shopper: Procedure Note Donotuseinterpreter, Image - 07/18/2025 [place] [address] Ultrasound Report Signed Patient: Polina Elena MR#: [id number] : 1980Acct:[id number] Age/Sex: 44 / FADM Date: 07/18/25 Loc: HO.US Attending Dr: Leonor Mckee MD Ordering Physician: Dora Aviles Date of Service: 07/18/25 Procedure(s): US renal BI Accession Number(s): [id number] cc: Dora Aviles; Leonor Mckee MD Reason for Exam: R35.1 - Nocturia EXAMINATION: US KIDNEY BILATERAL HISTORY: R35.1 - Nocturia TECHNIQUE: Real-time grayscale ultrasound imaging of the kidneys was performed and images were reviewed. COMPARISON: There are no prior studies available for comparison. FINDINGS: Right kidney: The right kidney measures 10.9 x 4.9 x 5.6 cm. Renal parenchymal echotexture and thickness are normal. There are no masses. There is no hydronephrosis or renal calculi. Left Kidney: The left kidney measures 10.4 x 6.3 x 4.9 cm. Renal parenchymal echotexture and thickness are normal. There are no masses. There is no hydronephrosis or renal calculi. The urinary bladder is unremarkable. Before voiding, the urinary bladder measured 10.4 x 3.6 x 9.2 cm, for an estimated volume of 179 mL. After voiding, the urinary bladder measured 4.1 x 1.3 x 7.3 cm, for an estimated volume of 21 mL. US/US renal BI IMPRESSION: Unremarkable renal ultrasound. Post void bladder residual 21 mL Electronically signed by: Rigoberto Chinchilla MD 07/18/2025 12:13 PM [facility] Dictated By: Rigoberto Chinchilla MD Signed By: <Electronically signed by Rigoberto Chinchilla MD in OV> 07/18/25 1213 DD/ 1110 TD/TT: 07/18/25 1142 Competitive Shopper: us [facility] External Provider IMG US PROCEDURES Final Result * Urinalysis, Complete, with Reflex to Culture (04/24/2025 10:30 AM EDT) Color Urine Yellow [facility] Appearance Urine Clear [facility] PH 5.5 5.0 - 9.0 [facility] Glucose Urine UA Negative Negative mg/dL [facility] Urine Blood Negative Negative [facility] Specific [place] - Urine 1.025 1.005 - 1.025 [facility] Urine Protein Negative Neg-Trace mg/dL [facility] Urine Ketones Negative Negative mg/dL [facility] Nitrite Urine Negative Negative [facility] Leukocyte Esterase Urine Negative Negative [facility] RBC Urine 0-2 0 - 2 /HPF [facility] Urine WBC 0-5 0 - 5 /HPF [facility] Urine Squamous Epithelial Cell 0-2 0 - 2 /HPF [facility] Urine Bacteria None Seen None Seen [facility] Hyaline Casts, Urine 0-2 0 - 2 /LPF [facility] Urine 04/24/2025 10:3 0 AM EDT 04/24/2025 2:17 PM EDT Narrative [facility] - 04/24/2025 2:30 PM EDT [id number], Clean Catch us Leonor Mckee MD LAB URINE ORDERABLES Final Re sult Performing Organization Address [facility] Co de Phone Number [facility] [address] [place] [phone] * Hepatitis C Antibody with Reflex to HCV, RNA, Quantitative, Real-Time PCR (04/24/2025 10:25 AM EDT) Hepatitis C Antibody Nonreactive Nonreactive [facility] Comment:Antibodies to HCV no t detected; does not exclude early acuteHCV infection. Blood Venous blood specimen / Unknown 04/24/2025 10:25 AM EDT 04/24/2025 2:29 PM EDT us Leonor Mckee MD LAB BLOOD ORDERABLES Final Re sult Performing Organization Address [facility] Co de Phone Number [facility] [address] [place] [phone] * HIV-1/2 Antigen and Antibodies, Fourth Generation, with Reflexes (04/24/2025 10:25 AM EDT) HIV AB/AG Nonreactive Nonreactive [facility] Comment:HIV-1 p24 Ag and/or HIV-1/HIV-2 Ab not detected.A test result that is nonreactive does not exclude thepossibility of exposure to or infection with HIV-1 and/orHIV-2. Nonreactive results in this assay for individualswith prior exposure to HIV-1 and/or HIV-2 may be due toantigen and antibody levels that are below the limit ofdetection of this assay.The [employer] HIV Ag/Ab Combo assay result andsupplemental assay results should be interpreted inconjunction with the patient's clinical presentation,history and other laboratory results. If the results areinconsistent with clinical evidence, additional testing issuggested to confirm the result. Blood Venous blood specimen / Unknown 04/24/2025 10:25 AM EDT 04/24/2025 2:29 PM EDT us Leonor Mckee MD LAB BLOOD ORDERABLES Final Re sult [facility] [address] [place] [phone] * Vitamin D, 25-Hydroxy, Total, Immunoassay (04/24/2025 10:23 AM EDT) [facility] Vitamin D 25-OH Total 36.6 >30 ng/mL [facility] Comment: Health Based Reference Values*< 20 ng/mL Mgrpqcyng40-09 ng/mL Insufficient> 30 ng/mL Sufficient*Desirae DOMINGUEZ. N [...] ORDERABLES Final Re sult Performing Organization Address [facility] Co de Phone Number [facility] [address] [place] [phone] [phone] * (ABNORMAL) TSH W/Reflex to FT4 (04/24/2025 10:23 AM EDT) TSH reflex Free T4 5.02(H) 0.32 - 4.0 uIU/mL [facility] Blood Venous blood specimen / Unknown 04/24/2025 10:23 AM EDT 04/24/2025 2:29 PM EDT Leonor Mckee MD LAB BLOOD ORDERABLES Final Re sult Performing Organization Address [facility] Co de Phone Number [facility] [address] [place] [phone] * Measles, Mumps, and Rubella (MMR) Antibodies??(IgG) Panel, Immune Status (04/24/2025 10:23 AM EDT) Mumps Virus IgG Antibody >300.00 AU/mL [facility] Comment:AU/mL Interpretation ------- <9.00 Not consistent with immunity9.00-10.99 Equivocal>10.99 Consistent with immunityThe presence of mumps IgG antibody suggests immunizationor past or current infection with mumps virus. Rubella IgG Antibody 12.90 Index [facility] Comment:Index Interpretation ----- <0.90 Not consistent with immunity 0.90-0.99 Equivocal > or = 1.00 Consistent with immunityThe presence of rubella IgG antibody suggestsimmunization or past or current infection withrubella virus.THIS TEST WAS PERFORMED AT:[employer] [place] [id number] Morales AMADOR IgG (Measles) >300.00 AU/mL [facility] Comment:AU/mL Interpretation ----- <13.50 Not consistent with eekrkcru70.50-16.49 Equivocal>16.49 Consistent with immunityThe presence of measles IgG suggests immunization orpast or current infection with measles virus.For additional information, please refer tohttp://education.Evolv/faq/YYF465(This link is being provided for informational/educational purposes only.) Blood 04/24/2025 10:2 3 AM EDT 04/24/2025 2:29 PM EDT us Leonor Mckee MD LAB BLOOD ORDERABLES Final Re sult [facility] [address] [place] [phone] * (ABNORMAL) CBC auto differential (04/24/2025 10:23 AM EDT) White Blood Count 8.0 4.8 - 10.8 X10*3/uL [facility] Red Blood Count 4.43 4.20 - 5.50 X10*6/uL [facility] Hemoglobin 13.3 12.0 - 16.0 g/dl [facility] Hematocrit 40.8 37.0 - 47.0 % [facility] Mean Corpuscular Volume 92.1 80.0 - 98.0 fL [facility] Mean Corpuscular Hemoglobin 30.0 27.0 - 33.0 pg [facility] Mean Corpuscular HGB Conc 32.6 31.0 - 35.0 g/dl [facility] Red Cell Distribution Width 12.9 11.0 - 16.0 % [facility] Platelet Count 252 160 - 400 X10*3/uL [facility] Mean Platelet Volume 11.6 9.4 - 12.3 fL [facility] Neutrophils Percent Auto 62.3 45 - 73 % [facility] Imm Gran Pct Auto 0.5(H) 0.0 - 0.4 % [facility] Lymphocytes Percent Auto 26.1 20 - 40 % [facility] Monocytes Percent Auto 8.5 2 - 11 % [facility] Eosinophils Percent Auto 2.1 0 - 4 % [facility] Basophils Percent Auto 0.5 0 - 2 % [facility] NRBC Pct Auto 0.0 0.0 - 0.2 /100WBC [facility] Neutrophils Absolute Auto 5.0 2.0 - 8.3 x10*3/uL [facility] Imm Gran Abs Auto 0.04(H) 0.00 - 0.03 X10*3/uL [facility] Lymphocytes Absolute Auto 2.1 1.2 - 4.9 X10*3/uL [facility] Monocytes Absolute Auto 0.7 0.1 - 1.2 X10*3/uL [facility] Eosinophils Absolute Auto 0.2 0.0 - 0.4 X10*3/uL [facility] Basophils Absolute Auto 0.0 0.0 - 0.2 X10*3/uL [facility] NRBC Abs Auto 0.000 0.0 - 0.012 X10*3/uL [facility] Blood Venous blood specimen / Unknown 04/24/2025 10:23 AM EDT 04/24/2025 2:29 PM EDT us Leonor Mckee MD LAB BLOOD ORDERABLES Final Re sult [facility] [address] [place] [phone] * T4, Free (04/24/2025 10:23 AM EDT) Free T4 (Free Thyroxine) 0.91 0.71 - 1.85 ng/dL [facility] 04/24/2025 10:2 3 AM EDT 04/24/2025 2:29 PM EDT us Leonor Mckee MD LAB BLOOD ORDERABLES Final Re sult Performing Organization Address City/[facility]/ZIP Co de Phone Number [facility] [address] [place] [phone] * (ABNORMAL) Lipid Panel, Standard (04/24/2025 10:23 AM EDT) Triglycerides 210(H) <150 mg/dL [facility] Comment:Desirable Triglyceri de: less than 150 mg/dLBorderline High Triglyceride 150-199 mg/dLHigh Triglyceride: 200-499 mg/dLVery High Triglyceride: greater than or equal to 5OO mg/dL Cholesterol 194 <200 mg/dL [facility] Comment:Desirable Cholestero l: less than 200 mg/dLBorderline High Cholesterol: 200-239 mg/dLHigh Cholesterol: greater than 239 mg/dL LDL Cholesterol Calculated 122(H) <100 mg/dL [facility] Comment:Desirable LDL: less than 100 mg/dLNear Optimal/Above Optimal LDL: 110- 129 mg/dLBorderline High LDL: 130-159 mg/dLHigh LDL: 160-189 mg/dLVery High LDL: greater than or equal to 190 mg/dL HDL Cholesterol 30(L) >40 mg/dL [facility] Comment:Desirable HDL: great er than 40 mg/dL Note: This HDL assay may give artificially low results in patients with liver disease. Blood Venous blood specimen / Unknown 04/24/2025 10:23 AM EDT 04/24/2025 2:29 PM EDT us Leonor Mckee MD LAB BLOOD ORDERABLES Final Re sult [facility] [address] [place] [phone] * (ABNORMAL) Comprehensive Metabolic Panel (04/24/2025 10:23 AM EDT) Sodium 139 135 - 145 mmol/L [facility] Potassium 3.7 3.3 - 5.1 mmol/L [facility] Chloride 107 96 - 108 mmol/L [facility] Carbon Dioxide 28 22 - 29 mmol/L [facility] Anion Gap 8(L) 12 - 20 [facility] Urea Nitrogen (BUN) 12 9 - 16 mg/dL [facility] Creatinine, Serum 0.61 0.5 - 1.4 mg/dL [facility] Estimated Glomerular Filt Rate >60 [facility] Comment:Chronic Kidney Disea se: Estimated GFR < 60 mL/min/1.35h2Vkjaud Kidney Disease: Estimated GFR < 15 mL/min/1.73m2 Glucose 89 60 - 115 mg/dL [facility] Calcium 8.9 8.4 - 10.2 mg/dL [facility] Bilirubin, Total 0.5 0.0 - 1.0 mg/dL [facility] Aspartate Amino Transferase 22 5 - 31 U/L [facility] Alanine Aminotransferase 19 0 - 31 U/L [facility] Total Protein 7.4 6.5 - 8.0 g/dL [facility] Albumin Level 4.2 3.5 - 5.0 g/dL [facility] Alkaline Phosphatase 65 39 - 117 U/L [facility] Blood Venous blood specimen / Unknown 04/24/2025 10:23 AM EDT 04/24/2025 2:29 PM EDT us Leonor Mckee MD LAB BLOOD ORDERABLES Final Re sult [facility] [address] [place] [phone] * Varicella Zoster Antibody, IgG (04/24/2025 10:19 AM EDT) Varicella IgG Antibody 3.61 S/CO [facility] Comment:Signal to Cut-off S/ CO [...] Antibody Immunity Screen, ACIF.THIS TEST WAS PERFORMED AT:[employer] [place] [id number] WISE MD Blood Venous blood specimen / Unknown 04/24/2025 10:19 AM EDT 04/24/2025 2:29 PM EDT us Leonor Mckee MD LAB BLOOD ORDERABLES Final Re sult [facility] [address] [place] [phone] * HPV High Risk with Reflex to Subtypes (04/24/2025 9:10 AM EDT) HPV High Risk Negative Negative [facility] HPV Genotype 16 Negative Negative [facility] HPV Genotype 18 Negative Negative [facility] Comment:HPV testing performe d at [facility] (IA#[id number]), [address] [place] [address].Testing for HPV was performed using the Sanjeev [...] MD LAB BLOOD ORDERABLES Final Re sult [facility] [address] [place] [phone] * Pap Smear (04/24/2025 9:10 AM EDT) Swab Cervical swab / Unknown 04/24/2025 9:10 AM EDT 04/25/2025 11:28 AM EDT Narrative [facility] - 04/30/2025 2:47 PM EDT ----- ------- Name: Polina Elena Age/Sex: 44/F : 1980 Unit#: [id number] Attend Dr: Leonor Mckee MD Re04/24/25 Status: DEP REF Location: HO.LNP Disch: ----- ------- SPEC : [id number] RECD: 04/25/25 STATUS: HODA SEQUEIRA NUM: [id number] DIANE: 04/24/[address] [facility] [address]: Leonor Mckee MD ENTERED: 04/25/25 SP TYPE: Pap Smr OTHR DR: ORDERED: Pap Smear Interpretation Satisfactory for [...] and HPV testing will be performed at [facility] (CLIA #[id number]), [address] [place] [address]. Testing for HPV was performed using the [...] detected. All professional services are performed by [facility] ([address] [place] [address]; ; CLIA #[id number]). The PAP Test is a screening procedure with the inherent possibility of both false negative and false positive results. Results should be interpreted in the context of historic and current clinical findings. Reliability of the PAP Test is enhanced by performing the test on a regular repetitive basis. CONTINUED ON NEXT PAGE ----- ------- Name: Polina Elena Age/Sex: 44/F : 1980 Unit#: [id number] Attend Dr: Leonor Mckee MD Re04/24/25 Status: DEP REF Location: HO.LNP Disch: ----- ------- SPEC : [id number] RECD: 04/25/25 STATUS: HODA SEQUEIRA NUM: [id number] DIANE: 04/24/25-[address] [facility] [address]: Leonor Mckee MD ENTERED: 04/25/25 SP TYPE: Pap Rosey BAXTER DR: ORDERED: Pap Smear ----- ------- Signed (signature on file) Sofi [address] [facility] ([facility]) 04/30/25 1447 ----- ------- END OF REPORT us Leonor Mckee MD LAB CYTOLOGY ORDERABLES Final Result [facility] [address] [place] [phone] * Cologuard?? colon cancer screening (04/11/2025 8:50 AM EDT) Cologuard Result Negative Negative 04/17/20 8:30 PM EDT [employer] (CLIA #:[id number]) Comment: The Cologuard (TM) test was performed [...] cancer. Following a negative Cologuard result, the [place] [employer] and U.S. Multi-Society Task Force screening guidelines recommend a Cologuard re-screening interval of 3 years. References: [place] [employer] Society Guideline for Colorectal Cancer Screening: https://www.cancer.org/cancer/tpmbn-ghpxiu-wztsxv/nympkxivf-spomasfhf-zsrvrhl/ac s-rec ommendations.html.; Fly DK, Malvin CORMIER, Paulina FraserK, Colorectal Cancer Screening: Recommendations for Physicians and Patients from the U.S. Multi-Society Task Force on Colorectal Cancer Screening , Am J Gastroenterology 2017; 112:0895-7747. TEST DESCRIPTION: Composite algorithmic analysis of stool [...] Bautista et al, N Engl J Med 2014;370(14):7833-7566.) Cologuard may produce a false negative or false positive result (no colorectal cancer or precancerous polyp present at colonoscopy follow up). A negative Cologuard test result does not guarantee the absence of CRC or advanced adenoma (pre-cancer). The current Cologuard screening interval is every 3 years. ([place] [employer] and U.S. Multi-Society Task Force). Cologuard performance data in a 10,000 patient pivotal study using colonoscopy as the reference method can be accessed at the following location: www.[employer]/results. Additional description of the Cologuard test process, warnings and precautions can be found at www.[employer].comrd.com. Stool specimen (specimen) 04/11/2025 8:50 AM EDT 04/13/2025 9:11 AM EDT us Leonor Mckee MD LAB MOLECULAR DIAGNOSTICS ORD ERABLES Final Result [employer] (CLIA #:[id number]) [address] 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
--- OUTSIDE RECORDS SUMMARY | 2025-07-18 14:17 | XMS_ITS | Encounter Summary ---
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 Name Role Phone Leonor Mckee MD Primary Care Provider [phone] Encounter Details Date Type Department Care Team ([facility] Contact Info) Description 07/18/2025 Orders Only [facility] External Provider, [facility] Social History Tobacco Use Types Packs/Day Years [...] Name Priority Date/Time Associated Diagnosis Comments US RENAL COMPLETE Routine 07/18/2025 11: 10 AM EST documented in this encounter Results * US Renal Complete (07/18/2025 11:10 AM EST) Anatomical Region Laterality Modality Kidney Ultrasound 07/18/2025 11:1 0 AM EST Narrative 07/18/2025 12:16 PM EST [address] [address] Ultrasound Report Signed Patient: Polina Elena MR#: [id number] : 1980 Acct:[id number] Age/Sex: 44 / F ADM Date: 07/18/25 Loc: HO.US Attending Dr: Leonor Mckee MD Ordering Physician: Dora Aviles Date of Service: 07/18/25 Procedure(s): US renal BI Accession Number(s): [id number] cc: Dora Aviles; Leonor Mckee MD Reason [...] by: Rigoberto Chinchilla MD 07/18/2025 12:13 PM EST Dictated By: Rigoberto Chinchilla MD Signed By: <Electronically signed by Rigoberto Chinchilla MD in OV> 07/18/25 1213 DD/ 1110 TD/TT: 07/18/25 1142 Bread Racker: Procedure Note Donotuseinterpreter, Image - 07/18/2025 [place] [address] Ultrasound Report Signed Patient: Polina Elena MR#: [id number] : 1980Acct:[id number] Age/Sex: 44 / FADM Date: 07/18/25 Loc: HO.US Attending Dr: Leonor Mckee MD Ordering Physician: Dora Aviles Date of Service: 07/18/25 Procedure(s): US renal BI Accession Number(s): [id number] cc: Dora Aviles; Leonor Mckee MD Reason [...] by: Rigoberto Chinchilla MD 07/18/2025 12:13 PM EST Dictated By: Rigoberto Chinchilla MD Signed By: <Electronically signed by Rigoberto Chinchilla MD in OV> 07/18/25 1213 DD/ 1110 TD/TT: 07/18/25 1142 Bread Racker: [facility] External Provider IMG US PROCEDURES Final Result documented in this encounter Visit Diagnoses Not on filedocumented in this encounter Care Teams Electric Dolly Operator Relationship Specialty Start Date End Date Leonor Mckee MD [address] [place] [id number] PCP - General Family Medicine 03/29/25 documented as of this encounter
== END 2025-07-18 10:57 | disposition home or self-care (01) ==
LOC: HO.US 10:56
PROVIDERS: PCP Family Medicine; Visit Provider Family Medicine
DX: R35.1 Nocturia (principal); R35.0 Frequency of micturition; R33.9 Retention of urine, unspecified; N83.201 Unspecified ovarian cyst, right side
CPT/HCPCS: 76775; 76830; 76856

== ENCOUNTER → 2025-07-18 11:00 | Outpatient (BNV) | payer MEDICAID, SELFPAY | PROVIDERS: PCP Family Medicine; Visit Provider Radiology Diagnostic Radiology | DX: N83.02 Follicular cyst of left ovary (principal); D25.9 Leiomyoma of uterus, unspecified; R35.1 Nocturia | CPT/HCPCS: 76775; 76830; 76856 ==